=== PATIENT | female | born 1990 | race Caucasian/White ===

== ENCOUNTER 2019-02-13 14:27 | Emergency (ER) | payer OTHER ==
--- NOTE | 2019-02-13 15:47 | ER Document Report ---
ED Medical Screen (RME) - General Chief Complaint: Fever Stated Complaint: FEVER Time Seen by Provider: 02/13/19 15:39 Notes: Patient is otherwise healthy 28-year-old female presents to the emergency department for a weeklong cough, congestion. [place] Patient states today she developed a fever T- max 101, developed a sore throat, discharge from the right eye. States she is having an increase in respiratory distress which is why she presents to the emergency room. Patient denies any history of asthma or albuterol use. GENERAL: Alert, interacts well. No acute distress. LUNGS: Coarse lung sounds heard right lower lobe, No respiratory distress. I have greeted and performed a rapid initial assessment of this patient. A comprehensive ED assessment and evaluation of the patient, analysis of test results and completion of the medical decision making process will be conducted by additional ED providers. I have specifically instructed the patient or family members with the patient to immediately return to any nursing staff should anything change in the patient's condition or with their chief complaint. This medical record was dictated with voice recognizing software. There may be grammatical, syntax errors that are unintended. TRAVEL OUTSIDE OF THE [place] IN LAST 30 DAYS: No - Related Data Allergies/Adverse Reactions: diphenhydramine [From Benadryl] Allergy (Verified 02/13/19 14:31) Penicillins Allergy (Verified 02/13/19 14:31) Past Medical History - Social History Frequency of alcohol use: None Drug Abuse: None Renal/ Medical History: Denies: Hx Peritoneal Dialysis Physical Exam - Vital signs Vitals: Temp Pulse Resp BP Pulse Ox 99 F 110 H 18 126/73 H 97 02/13/19 14:35 02/13/19 14:35 02/13/19 14:35 02/13/19 14:35 02/13/19 14:35 Course - Vital Signs Vital signs: Temp Pulse Resp BP Pulse Ox 99 F 110 H 18 126/73 H 97 02/13/19 14:35 02/13/19 14:35 02/13/19 14:35 02/13/19 14:35 02/13/19 14:35
--- NOTE | 2019-02-13 16:18 | RADIOLOGY REPORT (SQ) ---
EXAM DESCRIPTION: CHEST 2 VIEWS COMPLETED DATE/TIME: 02/13/2019 4:03 pm REASON FOR STUDY: SOB COMPARISON: None. EXAM PARAMETERS: NUMBER OF VIEWS: two views TECHNIQUE: Digital Frontal and Lateral radiographic views of the chest acquired. RADIATION DOSE: NA LIMITATIONS: none FINDINGS: LUNGS AND PLEURA: No opacities, masses or pneumothorax. No pleural effusion. MEDIASTINUM AND HILAR STRUCTURES: No masses or contour abnormalities. HEART AND VASCULAR STRUCTURES: Heart normal size. No evidence for failure. BONES: Pectus excavatum deformity HARDWARE: None in the chest. OTHER: No other significant finding. IMPRESSION: NO ACUTE DISEASE. TECHNICAL DOCUMENTATION: JOB ID: [id number] [employer]- All Rights Reserved Reading location - IP/workstation name: [email or web address]
[2019-02-13 17:24] LABS: ABSOLUTE LYMPHOCYTES (AUTO) 1.1 10^3/uL (0.5-4.7); ABSOLUTE MONOCYTES (AUTO) 0.6 10^3/uL (0.1-1.4); ABSOLUTE NEUT (AUTO) 7.4 10^3/uL (1.7-8.2); BASOPHILS % (AUTO) 0.4 % (0-2); EOSINOPHILS % (AUTO) 0.4 % (0-6); HEMATOCRIT 36.3 % (36.0-47.0); HEMOGLOBIN 12.3 g/dL (12.0-15.5); LYMPHOCYTES % (AUTO) 12.2 % (13-45); MEAN CORPUSCULAR HEMOGLOBIN 29.4 pg (27.0-33.4); MEAN CORPUSCULAR HGB CONC 33.9 g/dL (32.0-36.0); MEAN CORPUSCULAR VOLUME 87 fl (80-97); MONOCYTES % (AUTO) 6.3 % (3-13); PLATELET COUNT 267 10^3/uL (150-450); RED BLOOD COUNT 4.18 10^6/uL (3.72-5.28); RED CELL DISTRIBUTION WIDTH 14.2 % (11.5-14.0); SEGMENTED NEUTROPHILS % (AUTO) 80.7 % (42-78); TOTAL CELLS COUNTED % (AUTO) 100 %; WHITE BLOOD COUNT 9.2 10^3/uL (4.0-10.5)
[2019-02-13 17:26] LABS: APPEARANCE,URINE SLIGHTLY-CLOUDY; BILIRUBIN,URINE NEGATIVE (NEGATIVE); COLOR,URINE YELLOW; GLUCOSE, URINE NEGATIVE (NEGATIVE); KETONES,URINE 20 mg/dL (NEGATIVE); LEUKOCYTE ESTERASE,URINE NEGATIVE (NEGATIVE); NITRITE,URINE NEGATIVE (NEGATIVE); PROTEIN,URINE NEGATIVE (NEGATIVE); URINE SPECIFIC GRAVITY 1.028; UROBILINOGEN,URINE NEGATIVE mg/dL (<2.0)
[2019-02-13 17:39] LABS: ALANINE AMINOTRANSFERASE 22 U/L (9-52); ALBUMIN 4.5 g/dL (3.5-5.0); ALKALINE PHOSPHATASE 74 U/L (38-126); ANION GAP 12 (5-19); ASPARTATE AMINO TRANSFERASE 16 U/L (14-36); BILIRUBIN,DIRECT 0.3 mg/dL (0.0-0.4); BILIRUBIN,TOTAL 0.4 mg/dL (0.2-1.3); BLOOD UREA NITROGEN 15 mg/dL (7-20); CALCIUM 9.7 mg/dL (8.4-10.2); CARBON DIOXIDE 25 mmol/L (22-30); CHLORIDE 102 mmol/L (98-107); GLUCOSE 81 mg/dL (75-110); POTASSIUM 4.3 mmol/L (3.6-5.0); SODIUM 139.4 mmol/L (137-145); TOTAL PROTEIN 7.6 g/dL (6.3-8.2)
--- NOTE | 2019-02-13 19:07 | ER Document Report ---
ED Fever - General Chief Complaint: Fever Stated Complaint: FEVER Time Seen by Provider: 02/13/19 15:39 Primary Care Provider: TRISTAN OWENS MD [Primary Care Provider] - Follow up as needed Notes: 28-year-old female presents to the emergency department for a week of cough, congestion. States [place] Patient states today she developed a fever T-max 101, developed a sore throat, discharge from the right eye. States she is having an increase in respiratory distress which is why she presents to the emergency room. Patient denies any history of asthma or albuterol use. TRAVEL OUTSIDE OF THE [place] IN LAST 30 DAYS: No - Related Data Allergies/Adverse Reactions: diphenhydramine [From Benadryl] Allergy (Verified 02/13/19 14:31) Penicillins Allergy (Verified 02/13/19 14:31) Past Medical History - Social History Smoking Status: Never Smoker Frequency of alcohol use: None Drug Abuse: None Family History: Reviewed & Not Pertinent Patient has suicidal ideation: No Patient has homicidal ideation: No Renal/ Medical History: Denies: Hx Peritoneal Dialysis Review of Systems - Review of Systems Constitutional: Chills, Fever EENT: Eye discharge, Nose congestion. denies: Blurred vision Cardiovascular: Chest pain, Dyspnea. denies: Palpitations, Syncope Respiratory: Cough, Hurts to breathe, Short of breath Gastrointestinal: denies: Abdominal pain, Nausea, Vomiting Genitourinary: denies: Dysuria, Hematuria Neurological/Psychological: denies: Headaches -: Yes All other systems reviewed and negative Physical Exam - Vital signs Vitals: Temp Pulse Resp BP Pulse Ox 99 F 110 H 18 126/73 H 97 02/13/19 14:35 02/13/19 14:35 02/13/19 14:35 02/13/19 14:35 02/13/19 14:35 - Notes Notes: GENERAL_APPEARANCE: well_nourished, alert, cooperative VITALS: reviewed, see vital signs table. HEAD: no_swelling\tenderness on the head. EYES: PERRL, EOMI, conjunctiva_conjunctivitis right no Duran cystitis NOSE: Clear_nasal_discharge. Turbinate MOUTH: (-)decreased moisture. THROAT: no_tonsilar_inflammation, no_airway_obstruction. no_lymphadenopathy NECK: supple, no_neck_tenderness, (-)thyromegaly. BACK: no_back_tenderness. CHEST_WALL: Fuhs right-sided_chest_tenderness. No crepitus or subcutaneous e mphysema LUNGS: no_wheezing, no_rales, no_rhonchi, (-)accessory muscle use, good air exchange bilateral. HEART: normal_rate, normal_rhythm, normal_S1, normal_S2, (-)S3, (-)S4, no_murmur, no_rub. ABDOMEN: normal_BS, soft, no_abd_tenderness, (-)guarding, (-)rebound, no_organomegaly, no_abd_masses. EXTREMITIES: good pulses in all_extremities, no_swelling\tenderness in the extremities, no_edema. SKIN: warm, dry, good_color, no_rash. MENTAL_STATUS: speech_clear, oriented_X_3, normal_affect, res ponds_appropriately to questions. NEURO: Neg Motor or Sensory Deficits on exam, CN 2-12 intact, DTR 2+ symmetric x 4, No cerbellar signs Course - Re-evaluation Re-evalutation: 02/13/19 19:07 28-year-old female presents with sharp right-sided chest pain. Patient has clinical history of pneumonia. Planes of fever chills productive cough. She is a lot of pleuritic pain on the right. [place] here we w ill get a CT of the chest to rule out PE. 02/13/19 20:49 CT of the chest showed no PEs. There are some groundglass opacities there which could be viral in nature versus early infiltrate. The patient is being treated with steroids dose of antibiotics here. She is done better after IV fluid she still mildly tachycardic I think this is due to the pain. We will place her on a steroid taper. Spoke with her at length. She has some mild conjunctivitis but I think this is all probably part of a viral pattern. ABX will be given as prophylaxis I think this is more viral pattern but due to the patient's discomfort pain a tachycardia will cover her with antibiotics - Vital Signs Vital signs: Temp Pulse Resp BP Pulse Ox 99 F 110 H 18 126/73 H 97 02/13/19 14:35 02/13/19 14:35 02/13/19 14:35 02/13/19 14:35 02/13/19 14:35 - Laboratory Result Diagrams: 02/13/19 16:47 02/13/19 16:47 Laboratory results interpreted by me: 02/13/19 02/13/19 15:58 16:47 RDW 14.2 H Seg Neutrophils % 80.7 H Lymphocytes % 12.2 L Urine Ketones 20 H Discharge - Discharge Clinical Impression: Pleurisy Conjunctivitis Qualifiers: Conjunctivitis type: acute Acute conjunctivitis type: viral Laterality: right Qualified Code(s): B30.9 - Viral conjunctivitis, unspecified Condition: Good Disposition: HOME, SELF-CARE Instructions: Pleurisy ([facility]), Conjunctivitis ([facility]) Prescriptions: Cefuroxime Axetil [Ceftin 500 mg Tablet] 1 tab PO BID #20 tablet Prednisone [Sterapred Ds] 1 pkg PO ASDIR PRN 12 Days tab.ds.pk PRN Reason: Referrals: TRISTAN OWENS MD [Primary Care Provider] - Follow up as needed
--- NOTE | 2019-02-13 20:42 | RADIOLOGY REPORT (SQ) ---
EXAM DESCRIPTION: RadLex: CT CHEST ANGIOGRAPHY WITHOUT THEN WITH IV CONTRAST CLINICAL HISTORY: 28 years Female; Pleuritic chest pain TECHNIQUE: CT angiogram of the chest using intravenous contrast.. MIP reconstructions were performed. All CT scans at this facility use dose modulation, iterative reconstruction, and/or weight based dosing when appropriate to reduce radiation dose to as low as reasonably achievable. COMPARISON: None. FINDINGS: Chest: No filling defects in the central pulmonary arteries. There is focal subsegmental atelectasis and minimal pleural fluid in the posterior medial right lower lobe. Lungs are otherwise clear. No pneumothorax. Mediastinum is normal, with no adenopathy or mass. IMPRESSION: 1. No CT evidence for pulmonary embolism. 2. Focal atelectasis in the posterior medial right lower lobe, with small amount of associated pleural fluid. The pleural fluid is atypical for simple atelectasis and raises concern for pleurisy (such as viral or other etiologies). Please correlate with clinical symptoms.
[2019-02-13] MEDS ORDERED: DEXAMETHASONE SOD PHOS INJ 10 MG/1 ML VIAL IV ONE (20:45)
[2019-02-13] MEDS ORDERED: CEFTRIAXONE 1 GM/D5W RTU 1 GM/50 ML RTUPB IV ONE (20:45)
[2019-02-13 22:07] VITALS: BP 116/82
== END 2019-02-13 22:12 | disposition home or self-care (01) ==
LOC: ER 14:27
DX: R09.1 Pleurisy (principal); B30.9 Viral conjunctivitis, unspecified; R07.1 Chest pain on breathing; R05 Cough; R50.9 Fever, unspecified; R06.02 Shortness of breath; R00.0 Tachycardia, unspecified
CPT/HCPCS: 99284; 96365; 36415; 87070; 87086; 87880; 85025; 81025; 80053; 81001; 71046; 71275; J0696; J1100

== ENCOUNTER 2019-02-15 14:15 | Inpatient (IN) | payer OTHER ==
[2019-02-15] MEDS ORDERED: ACETAMINOPHEN 325 MG TABLET PO ONE (14:50)
[2019-02-15] MEDS ORDERED: NORMAL SALINE 1000 ML 1,000 ML IV ONE ×2 (14:51)
[2019-02-15] MEDS ORDERED: CEFTRIAXONE 1 GM/D5W RTU 1 GM/50 ML RTUPB IV ONE (14:56)
[2019-02-15] MEDS ORDERED: AZITHROMYCIN INJ 500 MG VIAL IV ONE ×2 (14:57→17:56)
--- NOTE | 2019-02-15 15:01 | ER Document Report ---
ED Medical Screen (RME) - General Chief Complaint: Weakness Stated Complaint: NAUSEA,FEVER,BODY PAIN Time Seen by Provider: 02/15/19 14:46 Primary Care Provider: TRISTAN OWENS MD [Primary Care Provider] - Follow up as needed Notes: Patient is a 28-year-old female presents to the emergency department for worsening symptoms from a diagnosis of pneumonia and pleurisy 2 days ago. States she has been taking antibiotics and steroids as prescribed. States the last antibiotic she took was Motrin. Patient states she continues with fevers generalized chest pain on the right side of her chest, weakness, general malais e. Patient was noted to be Sirs positive with a temperature and an elevated heart rate. SIRS criteria orders placed. Patient status upgraded GENERAL: Appears unwell. LUNGS: Diminished bilateral bases. HEART: Tachycardic rate and rhythm. I have greeted and performed a rapid initial assessment of this patient. A comprehensive ED assessment and evaluation of the patient, analysis of test results and completion of the medical decision making process will be conducted by additional ED providers. I have specifically instructed the patient or family members with the patient to immediately return to any nursing staff should anything change in the patient's condition or with their chief complaint. This medical record was dictated with voice recognizing software. There may be grammatical, syntax errors that are unintended. TRAVEL OUTSIDE OF THE [place] IN LAST 30 DAYS: No - Related Data Allergies/Adverse Reactions: diphenhydramine [From Benadryl] Allergy (Verified 02/15/19 14:19) Penicillins Allergy (Verified 02/15/19 14:19) Past Medical History - Social History Frequency of alcohol use: None Drug Abuse: None Renal/ Medical History: Denies: Hx Peritoneal Dialysis Physical Exam - Vital signs Vitals: Temp Pulse Resp BP Pulse Ox 103.0 F H 121 H 20 121/71 97 02/15/19 14:31 02/15/19 14:31 02/15/19 14:31 02/15/19 14:31 02/15/19 14:31 Course - Vital Signs Vital signs: Temp Pulse Resp BP Pulse Ox 103.0 F H 121 H 20 121/71 97 02/15/19 14:31 02/15/19 14:31 02/15/19 14:31 02/15/19 14:31 02/15/19 14:31 Doctor's Discharge - Discharge Referrals: TRISTAN OWENS MD [Primary Care Provider] - Follow up as needed
--- NOTE | 2019-02-15 15:42 | RADIOLOGY REPORT (SQ) ---
EXAM DESCRIPTION: CHEST 2 VIEWS COMPLETED DATE/TIME: 02/15/2019 3:28 pm REASON FOR STUDY: SOB COMPARISON: 02/13/2019 EXAM PARAMETERS: NUMBER OF VIEWS: two views TECHNIQUE: Digital Frontal and Lateral radiographic views of the chest acquired. RADIATION DOSE: NA LIMITATIONS: none FINDINGS: LUNGS AND PLEURA: No opacities, masses or pneumothorax. No pleural effusion. MEDIASTINUM AND HILAR STRUCTURES: No masses or contour abnormalities. HEART AND VASCULAR STRUCTURES: Heart normal size. No evidence for failure. BONES: No acute findings. HARDWARE: None in the chest. OTHER: No other significant finding. IMPRESSION: No acute abnormality of the lungs. No focal airspace opacity. TECHNICAL DOCUMENTATION: JOB ID: [id number] [employer]- All Rights Reserved Reading location - IP/workstation name: [email or web address]
[2019-02-15 16:06] LABS: VENOUS BLOOD BASE EXCESS 1.8 mmol/L; VENOUS BLOOD HCO3 26.1 mmol/L (20-32); VENOUS BLOOD PCO2 39.8 mmHg (35-63); VENOUS BLOOD PH 7.43 (7.30-7.42)
[2019-02-15 16:07] LABS: HEMATOCRIT 34.2 % (36.0-47.0); HEMOGLOBIN 11.6 g/dL (12.0-15.5); MEAN CORPUSCULAR VOLUME 85 fl (80-97); PLATELET COUNT 253 10^3/uL (150-450); RED BLOOD COUNT 4.01 10^6/uL (3.72-5.28); RED CELL DISTRIBUTION WIDTH 14.3 % (11.5-14.0)
[2019-02-15 16:23] LABS: INTERNATIONAL RATION (INR) 0.94; PROTHROMBIN TIME 13.1 SEC (11.4-15.4)
[2019-02-15] MEDS ORDERED: KETOROLAC TROMETHAMINE INJ/PF 30 MG/1 ML SDV IV ONE (16:23)
[2019-02-15 16:26] LABS: ALANINE AMINOTRANSFERASE 18 U/L (9-52); ALBUMIN 4.3 g/dL (3.5-5.0); ALKALINE PHOSPHATASE 60 U/L (38-126); ANION GAP 11 (5-19); ASPARTATE AMINO TRANSFERASE 15 U/L (14-36); BILIRUBIN,DIRECT 0.2 mg/dL (0.0-0.4); BILIRUBIN,TOTAL 0.3 mg/dL (0.2-1.3); BLOOD UREA NITROGEN 16 mg/dL (7-20); CALCIUM 9.3 mg/dL (8.4-10.2); CARBON DIOXIDE 25 mmol/L (22-30); CHLORIDE 103 mmol/L (98-107); GLUCOSE 109 mg/dL (75-110); POTASSIUM 4.6 mmol/L (3.6-5.0); SODIUM 138.5 mmol/L (137-145); TOTAL PROTEIN 7.2 g/dL (6.3-8.2)
[2019-02-15 16:31] LABS: ABSOLUTE LYMPHOCYTES# (MANUAL) 0.4 10^3/uL (0.5-4.7); ABSOLUTE MONOCYTES # (MANUAL) 0.4 10^3/uL (0.1-1.4); BASOPHILS % (MANUAL) 0 % (0-2); EOSINOPHILS % (MANUAL) 0 % (0-6); LYMPHOCYTES % (MANUAL) 4 % (13-45); MONOCYTES % (MANUAL) 4 % (3-13); SEGMENTED NEUTROPHILS % (MAN) 92 % (42-78); TOTAL CELLS COUNTED 100
[2019-02-15 16:32] LABS: ANISOCYTOSIS SLIGHT; PLATELET COMMENT ADEQUATE
--- NOTE | 2019-02-15 16:39 | ER Document Report ---
ED General - General Chief Complaint: Weakness Stated Complaint: NAUSEA,FEVER,BODY PAIN Time Seen by Provider: 02/15/19 14:46 Primary Care Provider: TRISTAN OWENS MD [Primary Care Provider] - Follow up as needed TRAVEL OUTSIDE OF THE [place] IN LAST 30 DAYS: No - HPI Notes: Patient is a 28-year-old female that presents to the emergency department for chief complaint of pneumonia. Patient states that for the last few weeks she has had worsening cough, congestion and fevers. She states she was seen at an urgent care facility on 02/01 and started on a Z-Ronald for pneumonia. She states that did not improve her symptoms and 02/11 she went to [facility]. They told her that she had pleurisy and did not give her any new prescriptions. On 02/13 patient continued to feel sick with increasing shortness of breath and presented to this emergency room. She said was started on Ceftin and has been taking that for the past 2 days. She states that today she still was febrile despite taking Tylenol and ibuprofen. Her last dose of ibuprofen was around 9 AM. Patient states she has a sharp pain when she coughs on the right side of her chest that radiates from her sternum underneath her right breast and into her back. She states that pain is been constant for the last few weeks as well. She denies any syncopal episodes, palpitations, headache, nausea/vomiting and diarrhea. She did not receive an influenza vaccine this year Past Medical History: PCOS Past Surgical History: IUD placement Social History: Denies drugs alcohol and tobacco Family History: Reviewed and noncontributory for presenting illness Allergies: Reviewed, see documented allergy list. REVIEW OF SYSTEMS: CONSTITUTIONAL : fever chills diaphoresis No recent illness EENT: No vision changes congestion No sore throat CARDIOVASCULAR: chest pain No palpitations RESPIRATORY: shortness of breath cough difficulty breathing GASTROINTESTINAL: No abdominal pain No nausea No vomiting No diarrhea GENITOURINARY: No dysuria No hematuria No difficulty urinating MUSCULOSKELETAL: No back pain No leg pain No arm pain SKIN: No rashes No lesions LYMPHATIC: No swollen, enlarged glands. NEUROLOGICAL: No lightheadedness No headache No weakness No paresthesias PSYCHIATRIC: No anxiety No depression PHYSICAL EXAMINATION: Vital signs reviewed, nursing noted reviewed. GENERAL: Ill-appearing, well-nourished HEAD: Atraumatic, normocephalic. EYES: Eyes appear normal, extraocular movements intact, sclera anicteric, conjunctiva are normal. ENT: nares patent, oropharynx clear without exudates. Dry mucous membranes. NECK: Normal range of motion, supple without lymphadenopathy LUNGS: Breath sounds clear to auscultation bilaterally and equal. No wheezes rales or rhonchi. Coarse cough, tachypneic, no accessory muscle use HEART: Tachycardic rate and regular rhythm without murmurs ABDOMEN: Soft, nontender, normoactive bowel sounds. No rebound, guarding, or rigidity. No masses appreciated. EXTREMITIES: Nontender, good range of motion, no pitting or edema. NEUROLOGICAL: No focal neurological deficits. Moves all extremities spontaneously Motor and sensory grossly intact on exam. PSYCH: Normal mood, normal affect. SKIN: Warm, Dry, normal turgor, no rashes or lesions noted on exposed skin - Related Data Allergies/Adverse Reactions: diphenhydramine [From Benadryl] Allergy (Verified 02/15/19 14:19) Penicillins Allergy (Verified 02/15/19 14:19) Past Medical History - Social History Smoking Status: Never Smoker Frequency of alcohol use: None Drug Abuse: None Family History: Reviewed & Not Pertinent Patient has suicidal ideation: No Patient has homicidal ideation: No Neurological Medical History: Reports: Hx Seizures - febrile seizures Renal/ Medical History: Denies: Hx Peritoneal Dialysis Physical Exam - Vital signs Vitals: Temp Pulse Resp BP Pulse Ox 103.0 F H 121 H 20 121/71 97 02/15/19 14:31 02/15/19 14:31 02/15/19 14:31 02/15/19 14:31 02/15/19 14:31 Course - Re-evaluation Re-evalutation: 02/15/19 16:38 Vitals reviewed. Nursing notes reviewed. Patient presented to the emergency room febrile, tachycardic and tachypneic. She has been compliant with home antibiotics. Patient is currently oxygenating on room air but is ill-appearing and tachypneic. She received Tylenol, Rocephin, azithromycin and IV fluids in triage. Her lab work shows a worsening leukocytosis with bandemia. Patient has no new infiltrate on chest x-ray however the comparison x-ray from 2 days ago was also clear and her infiltrate was found on CT scan. Patient has continued to worsen despite outpatient management and is meeting sepsis criteria. Plan to admit to the hospital for further IV antibiotics and monitoring. Care discussed with Dr. Lowe who accepts admission. Laboratory 02/15/19 02/15/19 02/15/19 06:13 15:45 15:45 WBC 11.0 H RBC 4.01 Hgb 11.6 L Hct 34.2 L MCV 85 MCH 29.0 MCHC 34.0 RDW 14.3 H Plt Count 253 Total Counted 100 Seg Neutrophils % Not Reportable Seg Neuts % (Manual) 92 H Lymphocytes % Not Reportable Lymphocytes % (Manual) 4 L Monocytes % Not Reportable Monocytes % (Manual) 4 Eosinophils % Not Reportable Eosinophils % (Manual) 0 Basophils % Not Reportable Basophils % (Manual) 0 Absolute Neutrophils Not Reportable Abs Neuts (Manual) 10.1 H Absolute Lymphocytes Not Reportable Abs Lymphs (Manual) 0.4 L Absolute Monocytes Not Reportable Abs Monocytes (Manual) 0.4 Absolute Eosinophils Not Reportable Absolute Eos (Manual) 0.0 Absolute Basophils Not Reportable Abs Basophils (Manual) 0.0 Platelet Comment ADEQUATE Anisocytosis SLIGHT PT 13.1 INR 0.94 VBG pH VBG pCO2 VBG HCO3 VBG Base Excess Sodium 138.5 Potassium 4.6 Chloride 103 Carbon Dioxide 25 Anion Gap 11 BUN 16 Creatinine 0.62 Est GFR ( Amer) > 60 Est GFR (Non-Af Amer) > 60 Glucose 109 Lactic Acid Calcium 9.3 Total Bilirubin 0.3 Direct Bilirubin 0.2 Neonat Total Bilirubin Not Reportable Neonat Direct Bilirubin Not Reportable Neonat Indirect Bili Not Reportable AST 15 ALT 18 Alkaline Phosphatase 60 Total Protein 7.2 Albumin 4.3 02/15/19 02/15/19 15:45 15:45 WBC RBC Hgb Hct MCV MCH MCHC RDW Plt Count Total Counted Seg Neutrophils % Seg Neuts % (Manual) Lymphocytes % Lymphocytes % (Manual) Monocytes % Monocytes % (Manual) Eosinophils % Eosinophils % (Manual) Basophils % Basophils % (Manual) Absolute Neutrophils Abs Neuts (Manual) Absolute Lymphocytes Abs Lymphs (Manual) Absolute Monocytes Abs Monocytes (Manual) Absolute Eosinophils Absolute Eos (Manual) Absolute Basophils Abs Basophils (Manual) Platelet Comment Anisocytosis PT INR VBG pH 7.43 H VBG pCO2 39.8 VBG HCO3 26.1 VBG Base Excess 1.8 Sodium Potassium Chloride Carbon Dioxide Anion Gap BUN Creatinine Est GFR ( Amer) Est GFR (Non-Af Amer) Glucose Lactic Acid 0.9 Calcium Total Bilirubin Direct Bilirubin Neonat Total Bilirubin Neonat Direct Bilirubin Neonat Indirect Bili AST ALT Alkaline Phosphatase Total Protein Albumin Chest X-Ray 02/15/19 14:54 IMPRESSION: No acute abnormality of the lungs. No focal airspace opacity. - Vital Signs Vital signs: Temp Pulse Resp BP Pulse Ox 103.0 F H 121 H 20 121/71 97 02/15/19 14:31 02/15/19 14:31 02/15/19 14:31 02/15/19 14:31 02/15/19 14:31 - Laboratory Result Diagrams: 02/15/19 15:45 02/15/19 06:13 Laboratory results interpreted by me: 02/15/19 02/15/19 15:45 15:45 WBC 11.0 H Hgb 11.6 L Hct 34.2 L RDW 14.3 H Seg Neuts % (Manual) 92 H Lymphocytes % (Manual) 4 L Abs Neuts (Manual) 10.1 H Abs Lymphs (Manual) 0.4 L VBG pH 7.43 H - EKG Interpretation by Me Additional EKG results interpreted by me: 02/15/19 16:36 Interpreted by myself 1629: Normal sinus rhythm, rate 98, normal axis, no ectopy, no STEMI Discharge - Discharge Clinical Impression: Sepsis Qualifiers: Sepsis type: sepsis due to unspecified organism Qualified Code(s): A41.9 - Sepsis, unspecified organism Pneumonia Qualifiers: Pneumonia type: due to unspecified organism Laterality: right Lung location: unspecified part of lung Qualified Code(s): J18.9 - Pneumonia, unspecified organism Condition: Stable Disposition: ADMITTED INPATIENT Admitting Provider: Mynor (Hospitalist) Unit Admitted: Medical Floor Referrals: TRISTAN OWENS MD [Primary Care Provider] - Follow up as needed
[2019-02-15] MEDS ORDERED: ACETAMINOPHEN 650 MG SUPP.RECT PR PRN (17:27)
[2019-02-15] MEDS ORDERED: ONDANSETRON HCL INJ/PF 4 MG/2 ML SDV IV PRN (17:27)
--- NOTE | 2019-02-15 18:18 | PDOC H&P ---
History of Present Illness Admission Date/PCP: TRISTAN OWENS MD Patient complains of: fever with failed out pt treatment. History of Present Illness: NATALIE VINSON is a 28 year old female with a history of fever associated with cough nausea for the last 3 weeks she was treated with outpatient antibiotic therapy Z-Ronald and Ceftin without any success, she had 4 x-rays and one CT scan as an outpatient latest CT scan on Friday shows right sided small pleural effusion. PE is ruled out no obvious pneumonia she came in with a temperature of 103 today associated with nausea headaches cough with greenish sputum. Work- up was done in the emergency room shows chest x-ray was normal WBC count is 11,100. Fever of 103 medical consult was called for admission in the emergency room patient was given IV Rocephin and IV azithromycin. I went to examine the patient and discussed the results including labs and x-ray reports and plan of care she agreed to stay in the hospital for IV antibiotic therapy. Past Medical History Cardiac Medical History: Reports: None Pulmonary Medical History: Reports: None EENT Medical History: Reports: None Neurological Medical History: Reports: None, Seizures - febrile seizures Endocrine Medical History: Reports: None Renal/ Medical History: Reports: None, Other - Patient has a history of polycystic ovarian syndrome. Malignancy Medical History: Reports: None GI Medical History: Reports: None Psychiatric Medical History: Reports: None Hematology: Reports: None Past Surgical History Past Surgical History: Reports: None Social History Information Source: Patient Lives with: Family Smoking Status: Never Smoker Frequency of Alcohol Use: None Hx Recreational Drug Use: No Hx Prescription Drug Abuse: No - Advance Directive Resuscitation Status: Full Code Family History Family History: Reviewed & Not Pertinent Parental Family History Reviewed: Yes - Father with diabetes mellitus hypertension mother with stroke. Children Family History Reviewed: Yes Sibling(s) Family History Reviewed.: Yes Medication/Allergy Home Medications: Cefuroxime Axetil [Ceftin 500 mg Tablet] 1 tab PO BID #20 tablet 02/13/19 Prednisone [Sterapred Ds] 1 pkg PO ASDIR PRN 12 Days tab.ds.pk 02/13/19 Allergies/Adverse Reactions: diphenhydramine [From Benadryl] Allergy (Verified 02/15/19 14:19) Penicillins Allergy (Verified 02/15/19 14:19) Review of Systems Constitutional: PRESENT: chills, fatigue, fever(s), headache(s), weakness Eyes: ABSENT: visual disturbances Ears: ABSENT: hearing changes Nose, Mouth, and Throat: PRESENT: sore throat Respiratory: PRESENT: cough, sputum Gastrointestinal: ABSENT: abdominal pain, constipation, diarrhea, hematemesis, hematochezia, nausea, vomiting Genitourinary: ABSENT: dysuria, hematuria Musculoskeletal: ABSENT: joint swelling Neurological: ABSENT: abnormal gait, abnormal speech, confusion, dizziness, focal weakness, syncope Psychiatric: ABSENT: anxiety, depression, homidical ideation, suicidal ideation Endocrine: ABSENT: cold intolerance, heat intolerance, polydipsia, polyuria Physical Exam Vital Signs: Temp Pulse Resp BP Pulse Ox 99.7 F 121 H 20 121/71 97 02/15/19 16:20 02/15/19 14:31 02/15/19 14:31 02/15/19 14:31 02/15/19 14:31 Intake & Output 02/14/19 02/15/19 02/16/19 06:59 06:59 06:59 Weight 61.8 kg General appearance: PRESENT: mild distress, well-developed Head exam: PRESENT: atraumatic Eye exam: PRESENT: PERRLA, other - Right eye is with red conjunctiva and watery drainage. Ear exam: PRESENT: normal external ear exam Mouth exam: PRESENT: moist, tongue midline Teeth exam: PRESENT: poor dentation Neck exam: ABSENT: carotid bruit, JVD, lymphadenopathy, thyromegaly Respiratory exam: PRESENT: clear to auscultation tammie. ABSENT: rales, rhonchi, wheezes Cardiovascular exam: PRESENT: RRR. ABSENT: diastolic murmur, rubs, systolic murmur GI/Abdominal exam: PRESENT: normal bowel sounds, soft. ABSENT: distended, guarding, mass, organolmegaly, rebound, tenderness Rectal exam: PRESENT: deferred Extremities exam: PRESENT: full ROM. ABSENT: calf tenderness, clubbing, pedal edema Neurological exam: PRESENT: alert, awake, oriented to person, oriented to place, oriented to time, oriented to situation, CN II-XII grossly intact. ABSENT: motor sensory deficit Psychiatric exam: PRESENT: appropriate affect, normal mood. ABSENT: homicidal ideation, suicidal ideation Results Laboratory Results: 02/15/19 15:45 02/15/19 06:13 06/02/15/19 02/15/19 06:13 15:45 15:45 WBC 11.0 H RBC 4.01 Hgb 11.6 L Hct 34.2 L MCV 85 MCH 29.0 MCHC 34.0 RDW 14.3 H Plt Count 253 Seg Neutrophils % Not Reportable Lymphocytes % Not Reportable Monocytes % Not Reportable Eosinophils % Not Reportable Basophils % Not Reportable Absolute Neutrophils Not Reportable Absolute Lymphocytes Not Reportable Absolute Monocytes Not Reportable Absolute Eosinophils Not Reportable Absolute Basophils Not Reportable VBG pH VBG pCO2 VBG HCO3 VBG Base Excess Sodium 138.5 Potassium 4.6 Chloride 103 Carbon Dioxide 25 Anion Gap 11 BUN 16 Creatinine 0.62 Est GFR ( Amer) > 60 Est GFR (Non-Af Amer) > 60 Glucose 109 Lactic Acid 0.9 Calcium 9.3 Total Bilirubin 0.3 AST 15 ALT 18 Alkaline Phosphatase 60 Total Protein 7.2 Albumin 4.3 02/15/19 15:45 WBC RBC Hgb Hct MCV MCH MCHC RDW Plt Count Seg Neutrophils % Lymphocytes % Monocytes % Eosinophils % Basophils % Absolute Neutrophils Absolute Lymphocytes Absolute Monocytes Absolute Eosinophils Absolute Basophils VBG pH 7.43 H VBG pCO2 39.8 VBG HCO3 26.1 VBG Base Excess 1.8 Sodium Potassium Chloride Carbon Dioxide Anion Gap BUN Creatinine Est GFR ( Amer) Est GFR (Non-Af Amer) Glucose Lactic Acid Calcium Total Bilirubin AST ALT Alkaline Phosphatase Total Protein Albumin Impressions: Chest X-Ray 02/15/19 14:54 IMPRESSION: No acute abnormality of the lungs. No focal airspace opacity. Assessment and Plan - Diagnosis (1) Pneumonia Qualifiers: Pneumonia type: due to unspecified organism Laterality: right Lung location: unspecified part of lung Qualified Code(s): J18.9 - Pneumonia, unspecified organism Is this a current diagnosis for this admission?: Yes Plan: 02/15/2019-patient is going to be admitted as inpatient for failed outpatient pneumonia she is going to be admitted as inpatient for failed outpatient antibiotic therapy patient is going to be started on IV levofloxacillin and to be placed in telemetry. To put the patient on telemetry monitoring because of tachycardia. Sputum cultures blood cultures are requested. GI prophylaxis DVT prophylaxis initiated. Placed on oxygen 2 L nasal cannula. Started on levo albuterol nebulizations every 4 as needed. (2) Sepsis Qualifiers: Sepsis type: sepsis due to unspecified organism Qualified Code(s): A41.9 - Sepsis, unspecified organism Is this a current diagnosis for this admission?: Yes Plan: 02/15/2019-patient admitted with fever tachycardia shortness of breath and CAT scan shows possible right pleural effusion with atelectasis adjacent atelecta sis. WBC count is 11,100. Heart rate is around 121 at the time of my examination. Sputum cultures blood cultures are requested. (3) Conjunctivitis Qualifiers: Conjunctivitis type: acute Acute conjunctivitis type: viral Laterality: right Qualified Code(s): B30.9 - Viral conjunctivitis, unspecified Is this a current diagnosis for this admission?: Yes Plan: 02/15/2019-patient came in with right eye conjunctivitis. Started on a Cipro eyedrops. Advised about contact precautions. - Time Time Spent with patient: 25-34 minutes Medications reviewed and adjusted accordingly: Yes Anticipated discharge: Home
[2019-02-15 20:43] LABS: APPEARANCE,URINE SLIGHTLY-CLOUDY; BILIRUBIN,URINE NEGATIVE (NEGATIVE); COLOR,URINE YELLOW; GLUCOSE, URINE NEGATIVE (NEGATIVE); KETONES,URINE NEGATIVE (NEGATIVE); LEUKOCYTE ESTERASE,URINE TRACE (NEGATIVE); NITRITE,URINE NEGATIVE (NEGATIVE); PROTEIN,URINE NEGATIVE (NEGATIVE); URINE SPECIFIC GRAVITY 1.015; UROBILINOGEN,URINE NEGATIVE mg/dL (<2.0)
[2019-02-15] MEDS: NORMAL SALINE 1000 ML 1,000 ML IV PRN (20:49)
[2019-02-15] MEDS: LEVALBUTEROL HCL NEB 0.63 MG/3 ML AMPUL NEB SCH (21:24)
[2019-02-15] MEDS: CIPROFLOXACIN-HC OTIC SUSP 10 ML AD SCH (22:10)
[2019-02-15 22:14] LABS: A TYPE INFLUENZA AG NEGATIVE (NEGATIVE); B INFLUENZA AG NEGATIVE (NEGATIVE)
--- NOTE | 2019-02-15 23:02 | EKG REPORT ---
SEVERITY:- NORMAL ECG - SINUS RHYTHM : Confirmed by: Corie Burgess 15-Feb-2019 23:01:23
[2019-02-15] MEDS: OXYCODONE-ACETAMINOPHEN 5-325 MG TABLET PO PRN (23:21)
[2019-02-15] MEDS: GUAIFENESIN/D-METHORPHAN (200-20 MG) SYRUP 10 ML PO PRN (23:26)
[2019-02-16] MEDS: LEVALBUTEROL HCL NEB 0.63 MG/3 ML AMPUL NEB SCH ×4 (02:06→20:35)
[2019-02-16] MEDS: OXYCODONE-ACETAMINOPHEN 5-325 MG TABLET PO PRN ×4 (05:02→18:41)
[2019-02-16] MEDS: PANTOPRAZOLE SODIUM 40 MG TABLET.DR PO SCH ×2 (05:02→17:20)
[2019-02-16] MEDS: NORMAL SALINE 1000 ML 1,000 ML IV PRN ×3 (05:03→20:51)
[2019-02-16] MEDS: GUAIFENESIN/D-METHORPHAN (200-20 MG) SYRUP 10 ML PO PRN ×2 (05:09→13:17)
[2019-02-16 06:32] LABS: HEMATOCRIT 30.7 % (36.0-47.0); HEMOGLOBIN 10.3 g/dL (12.0-15.5); MEAN CORPUSCULAR HEMOGLOBIN 28.9 pg (27.0-33.4); MEAN CORPUSCULAR HGB CONC 33.7 g/dL (32.0-36.0); MEAN CORPUSCULAR VOLUME 86 fl (80-97); PLATELET COUNT 197 10^3/uL (150-450); RED BLOOD COUNT 3.57 10^6/uL (3.72-5.28); RED CELL DISTRIBUTION WIDTH 14.2 % (11.5-14.0); WHITE BLOOD COUNT 7.2 10^3/uL (4.0-10.5)
[2019-02-16 06:48] LABS: ALANINE AMINOTRANSFERASE 12 U/L (9-52); ALBUMIN 3.4 g/dL (3.5-5.0); ALKALINE PHOSPHATASE 47 U/L (38-126); AMYLASE 73 U/L (30-110); ANION GAP 9 (5-19); ASPARTATE AMINO TRANSFERASE 11 U/L (14-36); BILIRUBIN,DIRECT 0.2 mg/dL (0.0-0.4); BILIRUBIN,TOTAL 0.2 mg/dL (0.2-1.3); BLOOD UREA NITROGEN 10 mg/dL (7-20); CARBON DIOXIDE 23 mmol/L (22-30); CHLORIDE 107 mmol/L (98-107); CHOLESTEROL 128.02 mg/dL (0-200); CREATINE KINASE 22 U/L (30-135); GLUCOSE 87 mg/dL (75-110); POTASSIUM 3.9 mmol/L (3.6-5.0); SODIUM 139.2 mmol/L (137-145); TOTAL PROTEIN 6.1 g/dL (6.3-8.2); TRIGLYCERIDES 66 mg/dL (<150)
[2019-02-16 06:59] LABS: DIRECT LDL 68 mg/dL (<100)
[2019-02-16] MEDS: CIPROFLOXACIN-HC OTIC SUSP 10 ML AD SCH ×2 (09:09→17:20)
[2019-02-16] MEDS: ENOXAPARIN SODIUM INJ 40 MG/0.4 ML DISP.SYRIN SUBCUT SCH (09:10)
--- NOTE | 2019-02-16 11:50 | PDOC PROGRESS REPORT ---
Subjective Progress Note for:: 02/16/19 Subjective:: 28 year old female with a history of fever associated with cough nausea for the last 3 weeks she was treated with outpatient antibiotic therapy Z-Ronald and Ceftin without any success, she had 4 x-rays and one CT scan as an outpatient latest CT scan on Friday shows right sided small pleural effusion. PE is ruled out no obvious pneumonia she came in with a temperature of 103 today associated with nausea headaches cough with greenish sputum. Work-up was done in the emergency room shows chest x-ray was normal WBC count is 11,100. Fever of 103 medical consult was called for admission in the emergency room patient was given IV Rocephin and IV azithromycin. I went to examine the patient and discussed the results including labs and x-ray reports and plan of care she agreed to stay in the hospital for IV antibiotic therapy. 02/[id number]-foww-old female admitted for pneumonia with failed outpatient treatment she has a T-max of 100.8 this morning presently on IV levofloxacillin. Patient is allergic to penicillins. I will add IV clindamycin to the medicati on. Reason For Visit: SEPSIS,PNEUMONIA Physical Exam Vital Signs: Temp Pulse Resp BP Pulse Ox 98.2 F 110 H 20 106/63 98 02/15/19 23:15 02/16/19 08:25 02/16/19 08:25 02/15/19 23:15 02/16/19 08:25 Intake & Output 02/15/19 02/16/19 02/17/19 06:59 06:59 06:59 Intake Total 3000 Balance 3000 Weight 64.3 kg General appearance: PRESENT: no acute distress Head exam: PRESENT: atraumatic Eye exam: PRESENT: PERRLA Mouth exam: PRESENT: moist, tongue midline Teeth exam: PRESENT: poor dentation Neck exam: ABSENT: carotid bruit, JVD, lymphadenopathy, thyromegaly Respiratory exam: PRESENT: clear to auscultation tammie. ABSENT: rales, rhonchi, wheezes Cardiovascular exam: PRESENT: RRR. ABSENT: diastolic murmur, rubs, systolic murmur GI/Abdominal exam: PRESENT: normal bowel sounds, soft. ABSENT: distended, guarding, mass, organolmegaly, rebound, tenderness Rectal exam: PRESENT: deferred Extremities exam: PRESENT: full ROM. ABSENT: calf tenderness, clubbing, pedal edema Neurological exam: PRESENT: alert, awake, oriented to person, oriented to place, oriented to time, oriented to situation, CN II-XII grossly intact. ABSENT: motor sensory deficit Psychiatric exam: PRESENT: appropriate affect, normal mood. ABSENT: homicidal ideation, suicidal ideation Results Laboratory Results: 02/16/19 06:00 02/16/19 06:00 02/15/19 02/15/19 02/15/19 06:13 15:45 15:45 WBC 11.0 H RBC 4.01 Hgb 11.6 L Hct 34.2 L MCV 85 MCH 29.0 MCHC 34.0 RDW 14.3 H Plt Count 253 Seg Neutrophils % Not Reportable Lymphocytes % Not Reportable Monocytes % Not Reportable Eosinophils % Not Reportable Basophils % Not Reportable Absolute Neutrophils Not Reportable Absolute Lymphocytes Not Reportable Absolute Monocytes Not Reportable Absolute Eosinophils Not Reportable Absolute Basophils Not Reportable VBG pH VBG pCO2 VBG HCO3 VBG Base Excess Sodium 138.5 Potassium 4.6 Chloride 103 Carbon Dioxide 25 Anion Gap 11 BUN 16 Creatinine 0.62 Est GFR ( Amer) > 60 Est GFR (Non-Af Amer) > 60 Glucose 109 Lactic Acid 0.9 Calcium 9.3 Magnesium Total Bilirubin 0.3 AST 15 ALT 18 Alkaline Phosphatase 60 Total Protein 7.2 Albumin 4.3 Triglycerides Cholesterol LDL Cholesterol Direct VLDL Cholesterol HDL Cholesterol Amylase TSH Urine Color Urine Appearance Urine pH Ur Specific [place] Urine Protein Urine Glucose (UA) Urine Ketones Urine Blood Urine Nitrite Ur Leukocyte Esterase Urine WBC (Auto) Urine RBC (Auto) 02/15/19 02/15/19 02/16/19 15:45 16:44 06:00 WBC RBC Hgb Hct MCV MCH MCHC RDW Plt Count Seg Neutrophils % Lymphocytes % Monocytes % Eosinophils % Basophils % Absolute Neutrophils Absolute Lymphocytes Absolute Monocytes Absolute Eosinophils Absolute Basophils VBG pH 7.43 H VBG pCO2 39.8 VBG HCO3 26.1 VBG Base Excess 1.8 Sodium 139.2 Potassium 3.9 Chloride 107 Carbon Dioxide 23 Anion Gap 9 BUN 10 Creatinine 0.47 L Est GFR ( Amer) > 60 Est GFR (Non-Af Amer) > 60 Glucose 87 Lactic Acid Calcium 8.0 L Magnesium 1.7 Total Bilirubin 0.2 AST 11 L ALT 12 Alkaline Phosphatase 47 Total Protein 6.1 L Albumin 3.4 L Triglycerides 66 Cholesterol 128.02 LDL Cholesterol Direct 68 VLDL Cholesterol 13.0 HDL Cholesterol 45 Amylase 73 TSH Urine Color YELLOW Urine Appearance SLIGHTLY-CLOUDY Urine pH 5.0 Ur Specific [place] 1.015 Urine Protein NEGATIVE Urine Glucose (UA) NEGATIVE Urine Ketones NEGATIVE Urine Blood SMALL H Urine Nitrite NEGATIVE Ur Leukocyte Esterase TRACE H Urine WBC (Auto) 3 Urine RBC (Auto) 2 02/16/19 02/16/19 06:00 06:00 WBC 7.2 RBC 3.57 L Hgb 10.3 L Hct 30.7 L MCV 86 MCH 28.9 MCHC 33.7 RDW 14.2 H Plt Count 197 Seg Neutrophils % Lymphocytes % Monocytes % Eosinophils % Basophils % Absolute Neutrophils Absolute Lymphocytes Absolute Monocytes Absolute Eosinophils Absolute Basophils VBG pH VBG pCO2 VBG HCO3 VBG Base Excess Sodium Potassium Chloride Carbon Dioxide Anion Gap BUN Creatinine Est GFR ( Amer) Est GFR (Non-Af Amer) Glucose Lactic Acid Calcium Magnesium Total Bilirubin AST ALT Alkaline Phosphatase Total Protein Albumin Triglycerides Cholesterol LDL Cholesterol Direct VLDL Cholesterol HDL Cholesterol Amylase TSH 1.27 Urine Color Urine Appearance Urine pH Ur Specific [place] Urine Protein Urine Glucose (UA) Urine Ketones Urine Blood Urine Nitrite Ur Leukocyte Esterase Urine WBC (Auto) Urine RBC (Auto) 02/15/19 02/15/19 02/15/19 17:45 17:45 23:28 Creatine Kinase 24 L 27 L CK-MB (CK-2) < 0.22 02/15/19 02/16/19 02/16/19 23:28 06:00 06:00 Creatine Kinase 22 L CK-MB (CK-2) < 0.22 < 0.22 Impressions: Chest X-Ray 02/15/19 14:54 IMPRESSION: No acute abnormality of the lungs. No focal airspace opacity. Assessment and Plan - Diagnosis (1) Pneumonia Qualifiers: Pneumonia type: due to unspecified organism Laterality: right Lung location: unspecified part of lung Qualified Code(s): J18.9 - Pneumonia, unspecified organism Is this a current diagnosis for this admission?: Yes Plan: 02/15/2019-patient is going to be admitted as inpatient for failed outpatient pneumonia she is going to be admitted as inpatient for failed outpatient antibiotic therapy patient is going to be started on IV levofloxacillin and to be placed in telemetry. To put the patient on telemetry monitoring because of tachycardia. Sputum cultures blood cultures are requested. GI prophylaxis DVT prophylaxis initiated. Placed on oxygen 2 L nasal cannula. Started on levo albuterol nebulizations every 4 as needed. 02/16/2019-this 28-year-old female admitted for failed outpatient treatment for pneumonia presently-IV levo floxacillin T-max is 100.6. Sputum cultures blood tests are pending. No acute events. Plan is to continue the present management at this point. (2) Sepsis Qualifiers: Sepsis type: sepsis due to unspecified organism Qualified Code(s): A41.9 - Sepsis, unspecified organism Is this a current diagnosis for this admission?: Yes Plan: 02/15/2019-patient admitted with fever tachycardia shortness of breath and CAT scan shows possible right pleural effusion with atelectasis adjacent atelectasis. WBC count is 11,100. Heart rate is around 121 at the time of my examination. Sputum cultures blood cultures are requested. 02/16/2019-patient came in with fever of 103, tachycardia, shortness of breath and CT scan shows right pleural effusion with adjacent atelectasis. WBC count yesterday was 11,000. Improved to 7200 today. Plan is to continue IV levo floxacillin and added IV clindamycin from today. Sputum culture showing gram- positive cocci in chains and blood cultures are pending. (3) Conjunctivitis Qualifiers: Conjunctivitis type: acute Acute conjunctivitis type: viral Laterality: right Qualified Code(s): B30.9 - Viral conjunctivitis, unspecified Is this a current diagnosis for this admission?: Yes Plan: 02/15/2019-patient came in with right eye conjunctivitis. Started on a Cipro eyedrops. Advised about contact precautions. 02/16/2019-patient is getting Cipro eyedrops for right-sided conjunctivitis looks much improved compared to yesterday. - Time Time Spent with patient: 25-34 minutes Medications reviewed and adjusted accordingly: Yes Anticipated discharge: Home
--- NOTE | 2019-02-16 14:03 | RADIOLOGY REPORT (SQ) ---
EXAM DESCRIPTION: CHEST 2 VIEWS COMPLETED DATE/TIME: 02/16/2019 1:44 pm REASON FOR STUDY: pneumonia COMPARISON: 02/15/2019 TECHNIQUE: Frontal and lateral radiographic views of the chest acquired. NUMBER OF VIEWS: Two view. LIMITATIONS: None. FINDINGS: LUNGS AND PLEURA: No pneumothorax. Minimal left basilar subsegmental atelectasis. No den se consolidation or pleural effusion. MEDIASTINUM AND HILAR STRUCTURES: Stable. HEART AND VASCULAR STRUCTURES: Stable. BONES: No acute findings. HARDWARE: None in the chest. OTHER: No other significant finding. IMPRESSION: Minimal left basilar subsegmental atelectasis. No dense consolidation or pleural effus ion. TECHNICAL DOCUMENTATION: JOB ID: [id number] [id number] 2010 [employer]- All Rights Reserved Reading location - IP/workstation name: [email or web address]
[2019-02-16] MEDS: ACETAMINOPHEN 325 MG TABLET PO PRN ×2 (15:47→20:17)
[2019-02-16] MEDS ORDERED: VANCOMYCIN HCL 1,000 MG in DEXTROSE 5%-WATER 250 ML IV SCH (16:00)
[2019-02-16] MEDS: LEVOFLOXACIN 500 MG/D5W RTU 500 MG/100 ML RTUPB IV SCH (17:20)
[2019-02-16] MEDS ORDERED: DIPHENHYDRAMINE HCL 50 MG/ML VIAL ONE (17:48)
[2019-02-16] MEDS ORDERED: DIPHENHYDRAMINE HCL 50 MG/ML VIAL IV PRN (17:50)
[2019-02-16] MEDS ORDERED: HYDROXYZINE HCL INJ 50 MG/1 ML VIAL IM PRN (17:56)
[2019-02-16] MEDS ORDERED: VANCOMYCIN HCL INJ 1000 MG VIAL IV SCH (18:00)
[2019-02-16] MEDS: CLINDAMYCIN 600 MG/D5W RTU 600 MG/50 ML RTUPB IV SCH (21:50)
[2019-02-16] MEDS: BENZOCAINE/MENTHOL SORE THROAT LOZENGE BUCCAL PRN (21:53)
[2019-02-17] MEDS: NORMAL SALINE 1000 ML 1,000 ML IV PRN (02:39)
[2019-02-17] MEDS: LEVALBUTEROL HCL NEB 0.63 MG/3 ML AMPUL NEB SCH ×4 (02:41→21:36)
[2019-02-17] MEDS: PANTOPRAZOLE SODIUM 40 MG TABLET.DR PO SCH ×2 (05:27→17:19)
[2019-02-17] MEDS: CLINDAMYCIN 600 MG/D5W RTU 600 MG/50 ML RTUPB IV SCH ×3 (05:27→22:58)
[2019-02-17] MEDS: OXYCODONE-ACETAMINOPHEN 5-325 MG TABLET PO PRN ×3 (05:29→16:34)
[2019-02-17 08:09] LABS: ABSOLUTE LYMPHOCYTES (AUTO) 0.9 10^3/uL (0.5-4.7); ABSOLUTE MONOCYTES (AUTO) 0.5 10^3/uL (0.1-1.4); ABSOLUTE NEUT (AUTO) 4.1 10^3/uL (1.7-8.2); BASOPHILS % (AUTO) 0.4 % (0-2); EOSINOPHILS % (AUTO) 0.2 % (0-6); HEMATOCRIT 32.1 % (36.0-47.0); LYMPHOCYTES % (AUTO) 15.9 % (13-45); MEAN CORPUSCULAR HEMOGLOBIN 28.9 pg (27.0-33.4); MEAN CORPUSCULAR HGB CONC 34.1 g/dL (32.0-36.0); MEAN CORPUSCULAR VOLUME 85 fl (80-97); MONOCYTES % (AUTO) 9.9 % (3-13); PLATELET COUNT 193 10^3/uL (150-450); RED BLOOD COUNT 3.79 10^6/uL (3.72-5.28); RED CELL DISTRIBUTION WIDTH 13.8 % (11.5-14.0); SEGMENTED NEUTROPHILS % (AUTO) 73.6 % (42-78); TOTAL CELLS COUNTED % (AUTO) 100 %; WHITE BLOOD COUNT 5.5 10^3/uL (4.0-10.5)
[2019-02-17 08:44] LABS: ALANINE AMINOTRANSFERASE 17 U/L (9-52); ALBUMIN 3.5 g/dL (3.5-5.0); ALKALINE PHOSPHATASE 45 U/L (38-126); ANION GAP 9 (5-19); ASPARTATE AMINO TRANSFERASE 19 U/L (14-36); BILIRUBIN,DIRECT 0.2 mg/dL (0.0-0.4); BILIRUBIN,TOTAL 0.3 mg/dL (0.2-1.3); BLOOD UREA NITROGEN 5 mg/dL (7-20); CALCIUM 8.6 mg/dL (8.4-10.2); CARBON DIOXIDE 27 mmol/L (22-30); CHLORIDE 100 mmol/L (98-107); GLUCOSE 93 mg/dL (75-110); POTASSIUM 3.9 mmol/L (3.6-5.0); SODIUM 136.4 mmol/L (137-145); TOTAL PROTEIN 6.2 g/dL (6.3-8.2)
[2019-02-17] MEDS: GUAIFENESIN/D-METHORPHAN (200-20 MG) SYRUP 10 ML PO PRN (09:55)
[2019-02-17] MEDS: CIPROFLOXACIN-HC OTIC SUSP 10 ML AD SCH ×2 (09:55→17:18)
[2019-02-17] MEDS: ENOXAPARIN SODIUM INJ 40 MG/0.4 ML DISP.SYRIN SUBCUT SCH (09:55)
--- NOTE | 2019-02-17 11:38 | PDOC PROGRESS REPORT ---
Subjective Progress Note for:: 02/17/19 Subjective:: 28 year old female with a history of fever associated with cough nausea for the last 3 weeks she was treated with outpatient antibiotic therapy Z-Ronald and Ceftin without any success, she had 4 x-rays and one CT scan as an outpatient latest CT scan on Friday shows right sided small pleural effusion. PE is ruled out no obvious pneumonia she came in with a temperature of 103 today associated with nausea headaches cough with greenish sputum. Work-up was done in the emergency room shows chest x-ray was normal WBC count is 11,100. Fever of 103 medical consult was called for admission in the emergency room patient was given IV Rocephin and IV azithromycin. I went to examine the patient and discussed the results including labs and x-ray reports and plan of care she agreed to stay in the hospital for IV antibiotic therapy. 02/[id number]-fbwb-old female admitted for pneumonia with failed outpatient treatment she has a T-max of 100.8 this morning presently on IV levofloxacillin. Patient is allergic to penicillins. I will add IV clindamycin to the medicati on. 02/17/[id number]-wbib-old female admitted for failed outpatient treatment for pneumonia. T-max is 98.6 today presently on IV levo floxacillin and IV clindamycin. Chest x-ray suggestive of mild right-sided atelectasis. WBC count is 5.5. Blood cultures and sputum cultures are negative so far. Complaining of right sided chest pain requesting K pad. Reason For Visit: SEPSIS,PNEUMONIA Physical Exam Vital Signs: Temp Pulse Resp BP Pulse Ox 99.0 F 103 H 16 100/57 L 97 02/17/19 07:59 02/17/19 08:37 02/17/19 08:37 02/17/19 07:59 02/17/19 08:37 Intake & Output 02/16/19 02/17/19 02/18/19 06:59 06:59 06:59 Intake Total 3000 4450 Balance 3000 4450 Weight 64.3 kg 69.7 kg General appearance: PRESENT: no acute distress Head exam: PRESENT: atraumatic Eye exam: PRESENT: PERRLA Mouth exam: PRESENT: dry mucosa Teeth exam: PRESENT: poor dentation Neck exam: ABSENT: carotid bruit, JVD, lymphadenopathy, thyromegaly Respiratory exam: PRESENT: decreased breath sounds Cardiovascular exam: PRESENT: tachycardia GI/Abdominal exam: PRESENT: normal bowel sounds, soft. ABSENT: distended, guarding, mass, organolmegaly, rebound, tenderness Rectal exam: PRESENT: deferred Extremities exam: PRESENT: full ROM. ABSENT: calf tenderness, clubbing, pedal edema Neurological exam: PRESENT: alert, awake, oriented to person, oriented to place, oriented to time, oriented to situation, CN II-XII grossly intact. ABSENT: motor sensory deficit Psychiatric exam: PRESENT: appropriate affect, normal mood. ABSENT: homicidal ideation, suicidal ideation Results Laboratory Results: 02/17/19 07:33 02/17/19 07:33 02/17/19 02/17/19 07:33 07:33 WBC 5.5 RBC 3.79 Hgb 11.0 L Hct 32.1 L MCV 85 MCH 28.9 MCHC 34.1 RDW 13.8 Plt Count 193 Seg Neutrophils % 73.6 Lymphocytes % 15.9 Monocytes % 9.9 Eosinophils % 0.2 Basophils % 0.4 Absolute Neutrophils 4.1 Absolute Lymphocytes 0.9 Absolute Monocytes 0.5 Absolute Eosinophils 0.0 Absolute Basophils 0.0 Sodium 136.4 L Potassium 3.9 Chloride 100 Carbon Dioxide 27 Anion Gap 9 BUN 5 L Creatinine 0.51 L Est GFR ( Amer) > 60 Est GFR (Non-Af Amer) > 60 Glucose 93 Calcium 8.6 Magnesium 1.8 Total Bilirubin 0.3 AST 19 ALT 17 Alkaline Phosphatase 45 Total Protein 6.2 L Albumin 3.5 02/15/19 16:44 Sputum Gram Stain - Final 02/15/19 16:44 Sputum Sputum Culture - Final NORMAL ZOIE 02/15/19 02/15/19 02/15/19 17:45 17:45 23:28 Creatine Kinase 24 L 27 L CK-MB (CK-2) < 0.22 02/15/19 02/16/19 02/16/19 23:28 06:00 06:00 Creatine Kinase 22 L CK-MB (CK-2) < 0.22 < 0.22 Impressions: Chest X-Ray 02/16/19 00:00 IMPRESSION: Minimal left basilar subsegmental atelectasis. No dense consolidation or pleural effusion. Assessment and Plan - Diagnosis (1) Pneumonia Qualifiers: Pneumonia type: due to unspecified organism Laterality: right Lung location: unspecified part of lung Qualified Code(s): J18.9 - Pneumonia, unspecified organism Is this a current diagnosis for this admission?: Yes Plan: 02/15/2019-patient is going to be admitted as inpatient for failed outpatient pneumonia she is going to be admitted as inpatient for failed outpatient antibiotic therapy patient is going to be started on IV levofloxacillin and to be placed in telemetry. To put the patient on telemetry monitoring because of tachycardia. Sputum cultures blood cultures are requested. GI prophylaxis DVT prophylaxis initiated. Placed on oxygen 2 L nasal cannula. Started on levo albuterol nebulizations every 4 as needed. 02/16/2019-this 28-year-old female admitted for failed outpatient treatment for pneumonia presently-IV levo floxacillin T-max is 100.6. Sputum cultures blood tests are pending. No acute events. Plan is to continue the present management at this point. 02/17/[id number]-zmrj-old female admitted for failed outpatient treatment for pneumonia presently on IV levo floxacillin and IV clindamycin. Yesterday after receiving 1 dose of IV vancomycin she is complaining of terrible headaches burning sensation in the scalp we gave her 25 mg of iv Vistaril and discontinued vancomycin. (2) Sepsis Qualifiers: Sepsis type: sepsis due to unspecified organism Qualified Code(s): A41.9 - Sepsis, unspecified organism Is this a current diagnosis for this admission?: Yes Plan: 02/15/2019-patient admitted with fever tachycardia shortness of breath and CAT scan shows possible right pleural effusion with atelectasis adjacent atelectasis. WBC count is 11,100. Heart rate is around 121 at the time of my examination. Sputum cultures blood cultures are requested. 02/16/2019-patient came in with fever of 103, tachycardia, shortness of breath and CT scan shows right pleural effusion with adjacent atelectasis. WBC count yesterday was 11,000. Improved to 7200 today. Plan is to continue IV levo floxacillin and added IV clindamycin from today. Sputum culture showing gram- positive cocci in chains and blood cultures are pending. 02/17/2019-I think sepsis symptoms are resolving. Blood pressure is 110/68 heart rate is 105 pulse ox is 98%. Cultures are negative so far. Plan is to continue the present management. Again sputum cultures came back normal respiratory zoie. (3) Conjunctivitis Qualifiers: Conjunctivitis type: acute Acute conjunctivitis type: viral Laterality: right Qualified Code(s): B30.9 - Viral conjunctivitis, unspecified Is this a current diagnosis for this admission?: Yes Plan: 02/15/2019-patient came in with right eye conjunctivitis. Started on a Cipro eyedrops. Advised about contact precautions. 02/16/2019-patient is getting Cipro eyedrops for right-sided conjunctivitis looks much improved compared to yesterday. 02/17/[id number]-cuosa-ibe conjunctivitis is resolving. - Time Time Spent with patient: 15-24 minutes Medications reviewed and adjusted accordingly: Yes Anticipated discharge: Home
[2019-02-17 15:00] LABS: VANCOMYCIN,TROUGH < 5.0 ug/mL (5.0-20.0)
[2019-02-17] MEDS: ACETAMINOPHEN 325 MG TABLET PO PRN (17:17)
[2019-02-17] MEDS: LEVOFLOXACIN 500 MG/D5W RTU 500 MG/100 ML RTUPB IV SCH (17:18)
[2019-02-18] MEDS: NORMAL SALINE 1000 ML 1,000 ML IV PRN ×3 (01:20→19:03)
[2019-02-18] MEDS: BENZOCAINE/MENTHOL SORE THROAT LOZENGE BUCCAL PRN (01:22)
[2019-02-18] MEDS: OXYCODONE-ACETAMINOPHEN 5-325 MG TABLET PO PRN (02:07)
[2019-02-18] MEDS: LEVALBUTEROL HCL NEB 0.63 MG/3 ML AMPUL NEB SCH ×4 (02:19→22:23)
[2019-02-18] MEDS: CLINDAMYCIN 600 MG/D5W RTU 600 MG/50 ML RTUPB IV SCH ×3 (05:37→21:59)
[2019-02-18] MEDS: PANTOPRAZOLE SODIUM 40 MG TABLET.DR PO SCH ×2 (05:37→17:18)
[2019-02-18] MEDS: GUAIFENESIN/D-METHORPHAN (200-20 MG) SYRUP 10 ML PO PRN (08:05)
[2019-02-18] MEDS: CIPROFLOXACIN-HC OTIC SUSP 10 ML AD SCH ×2 (10:07→17:18)
[2019-02-18] MEDS: ENOXAPARIN SODIUM INJ 40 MG/0.4 ML DISP.SYRIN SUBCUT SCH (10:40)
--- NOTE | 2019-02-18 10:52 | PDOC PROGRESS REPORT ---
Subjective Progress Note for:: 02/18/19 Subjective:: 28 year old female with a history of fever associated with cough nausea for the last 3 weeks she was treated with outpatient antibiotic therapy Z-Ronald and Ceftin without any success, she had 4 x-rays and one CT scan as an outpatient latest CT scan on Friday shows right sided small pleural effusion. PE is ruled out no obvious pneumonia she came in with a temperature of 103 today associated with nausea headaches cough with greenish sputum. Work-up was done in the emergency room shows chest x-ray was normal WBC count is 11,100. Fever of 103 medical consult was called for admission in the emergency room patient was given IV Rocephin and IV azithromycin. I went to examine the patient and discussed the results including labs and x-ray reports and plan of care she agreed to stay in the hospital for IV antibiotic therapy. 02/16/[id number]-pdux-old female admitted for pneumonia with failed outpatient treatment she has a T-max of 100.8 this morning presently on IV levofloxacillin. Patient is allergic to penicillins. I will add IV clindamycin to the medicati on. 02/17/[id number]-mhmc-old female admitted for failed outpatient treatment for pneumonia. T-max is 98.6 today presently on IV levo floxacillin and IV clindamycin. Chest x-ray suggestive of mild right-sided atelectasis. WBC count is 5.5. Blood cultures and sputum cultures are negative so far. Complaining of right sided chest pain requesting K pad. 02/18/[id number]-lkrk-old female admitted for outpatient failed outpatient treatment for pneumonia afebrile now T-max is 98.2 no complaints. Sputum cultures blood cultures came back negative. Urine culture came back positive for Fiordaliza may be secondary to multiple antibiotic she is on recently. To start on Diflucan 100 mg p.o. daily. Still complaining of weakness tiredness. Probably we may able to discharge her tomorrow. Reason For Visit: SEPSIS,PNEUMONIA Physical Exam Vital Signs: Temp Pulse Resp BP Pulse Ox 98.9 F 93 18 104/66 97 02/17/19 15:38 02/18/19 07:46 02/18/19 07:46 02/17/19 15:38 02/18/19 07:46 Intake & Output 02/17/19 02/18/19 02/19/19 06:59 06:59 06:59 Intake Total 4450 1640 1050 Balance 4450 1640 1050 Weight 69.7 kg 66.5 kg General appearance: PRESENT: no acute distress, cooperative, well-developed Head exam: PRESENT: atraumatic Eye exam: PRESENT: PERRLA Mouth exam: PRESENT: moist, tongue midline Teeth exam: PRESENT: poor dentation Neck exam: ABSENT: carotid bruit, JVD, lymphadenopathy, thyromegaly Respiratory exam: PRESENT: decreased breath sounds Cardiovascular exam: PRESENT: RRR. ABSENT: diastolic murmur, rubs, systolic murmur GI/Abdominal exam: PRESENT: normal bowel sounds, soft. ABSENT: distended, guarding, mass, organolmegaly, rebound, tenderness Rectal exam: PRESENT: deferred Neurological exam: PRESENT: alert, awake, oriented to person, oriented to place, oriented to time, oriented to situation, CN II-XII grossly intact. ABSENT: motor sensory deficit Psychiatric exam: PRESENT: appropriate affect, normal mood. ABSENT: homicidal ideation, suicidal ideation Results Laboratory Results: 02/17/19 07:33 02/17/19 07:33 02/15/19 16:44 Clean Catch Midstream Urine Culture - Final C.albicans/C.dubliniensis 02/15/19 16:44 Sputum Gram Stain - Final 02/15/19 16:44 Sputum Sputum Culture - Final NORMAL ZOIE 02/15/19 02/15/19 02/15/19 17:45 17:45 23:28 Creatine Kinase 24 L 27 L CK-MB (CK-2) < 0.22 02/15/19 02/16/19 02/16/19 23:28 06:00 06:00 Creatine Kinase 22 L CK-MB (CK-2) < 0.22 < 0.22 Impressions: Chest X-Ray 02/16/19 00:00 IMPRESSION: Minimal left basilar subsegmental atelectasis. No dense consolidation or pleural effusion. Assessment and Plan - Diagnosis (1) Pneumonia Qualifiers: Pneumonia type: due to unspecified organism Laterality: right Lung location: unspecified part of lung Qualified Code(s): J18.9 - Pneumonia, unspecified organism Is this a current diagnosis for this admission?: Yes Plan: 02/15/2019-patient is going to be admitted as inpatient for failed outpatient pneumonia she is going to be admitted as inpatient for failed outpatient antibiotic therapy patient is going to be started on IV levofloxacillin and to be placed in telemetry. To put the patient on telemetry monitoring because of tachycardia. Sputum cultures blood cultures are requested. GI prophylaxis DVT prophylaxis initiated. Placed on oxygen 2 L nasal cannula. Started on levo albuterol nebulizations every 4 as needed. 02/16/2019-this 28-year-old female admitted for failed outpatient treatment for pneumonia presently-IV levo floxacillin T-max is 100.6. Sputum cultures blood tests are pending. No acute events. Plan is to continue the present management at this point. 02/17/[id number]-bsdv-old female admitted for failed outpatient treatment for pneumonia presently on IV levo floxacillin and IV clindamycin. Yesterday after receiving 1 dose of IV vancomycin she is complaining of terrible headaches burning sensation in the scalp we gave her 25 mg of iv Vistaril and discontinued vancomycin. 02/18/[id number]-tphi-old female admitted for failed outpatient treatment for pneumonia. Getting IV levo floxacillin and IV clindamycin. Afebrile. Sputum cultures blood cultures came back negative. Plan is to continue the present management. (2) Sepsis Qualifiers: Sepsis type: sepsis due to unspecified organism Qualified Code(s): A41.9 - Sepsis, unspecified organism Is this a current diagnosis for this admission?: Yes Plan: 02/15/2019-patient admitted with fever tachycardia shortness of breath and CAT scan shows possible right pleural effusion with atelectasis adjacent atelectasis. WBC count is 11,100. Heart rate is around 121 at the time of my examination. Sputum cultures blood cultures are requested. 02/16/2019-patient came in with fever of 103, tachycardia, shortness of breath and CT scan shows right pleural effusion with adjacent atelectasis. WBC count yesterday was 11,000. Improved to 7200 today. Plan is to continue IV levo floxacillin and added IV clindamycin from today. Sputum culture showing gram- positive cocci in chains and blood cultures are pending. 02/17/2019-I think sepsis symptoms are resolving. Blood pressure is 110/68 heart rate is 105 pulse ox is 98%. Cultures are negative so far. Plan is to continue the present management. Again sputum cultures came back normal respiratory zoie. 02/18/2019-sepsis is resolved. Afebrile. Blood pressures are stable. Pulse ox is 96% on room air. Sputum cultures blood cultures are negative. Urine culture shows Fiordaliza to start on Diflucan today. (3) Conjunctivitis Qualifiers: Conjunctivitis type: acute Acute conjunctivitis type: viral Laterality: r ight Qualified Code(s): B30.9 - Viral conjunctivitis, unspecified Is this a current diagnosis for this admission?: Yes Plan: 02/15/2019-patient came in with right eye conjunctivitis. Started on a Cipro eyedrops. Advised about contact precautions. 02/16/2019-patient is getting Cipro eyedrops for right-sided conjunctivitis looks much improved compared to yesterday. 02/17/[id number]-fsbzo-wab conjunctivitis is resolving. 02/18/2019-right eye conjunctivitis resolved. - Time Time Spent with patient: 25-34 minutes Medications reviewed and adjusted accordingly: Yes Anticipated discharge: Home
[2019-02-18] MEDS: FLUCONAZOLE 100 MG TABLET PO SCH (11:54)
[2019-02-18] MEDS: ACETAMINOPHEN 325 MG TABLET PO PRN (17:17)
[2019-02-18] MEDS: LEVOFLOXACIN 500 MG/D5W RTU 500 MG/100 ML RTUPB IV SCH (17:18)
[2019-02-19] MEDS ORDERED: NYSTATIN CREAM 15 GM TP PRN (01:52)
[2019-02-19] MEDS ORDERED: NYSTATIN CREAM 15 GM ONE (03:07)
[2019-02-19] MEDS: LEVALBUTEROL HCL NEB 0.63 MG/3 ML AMPUL NEB SCH ×3 (03:29→13:37)
[2019-02-19] MEDS: NORMAL SALINE 1000 ML 1,000 ML IV PRN (03:31)
[2019-02-19] MEDS: GUAIFENESIN/D-METHORPHAN (200-20 MG) SYRUP 10 ML PO PRN (03:32)
[2019-02-19] MEDS: PANTOPRAZOLE SODIUM 40 MG TABLET.DR PO SCH (05:10)
[2019-02-19] MEDS: CLINDAMYCIN 600 MG/D5W RTU 600 MG/50 ML RTUPB IV SCH (05:10)
[2019-02-19] MEDS: ACETAMINOPHEN 325 MG TABLET PO PRN (08:45)
[2019-02-19] MEDS: ENOXAPARIN SODIUM INJ 40 MG/0.4 ML DISP.SYRIN SUBCUT SCH (09:29)
[2019-02-19] MEDS: FLUCONAZOLE 100 MG TABLET PO SCH (09:29)
[2019-02-19] MEDS: CIPROFLOXACIN-HC OTIC SUSP 10 ML AD SCH (09:29)
--- NOTE | 2019-02-19 10:38 | PDOC DISCHARGE SUMMARY ---
General - Admit/Disc Date/PCP Admission Date/Primary Care Provider: 02/15/19 16:59 TRISTAN OWENS MD Discharge Date: 02/19/19 - Discharge Diagnosis (1) Pneumonia Is this a current diagnosis for this admission?: Yes Summary: 02/15/2019-patient is going to be admitted as inpatient for failed outpatient pneumonia she is going to be admitted as inpatient for failed outpatient antibiotic therapy patient is going to be started on IV levofloxacillin and to be placed in telemetry. To put the patient on telemetry monitoring because of tachycardia. Sputum cultures blood cultures are requested. GI prophylaxis DVT prophylaxis initiated. Placed on oxygen 2 L nasal cannula. Started on levo albuterol nebulizations every 4 as needed. 02/16/2019-this 28-year-old female admitted for failed outpatient treatment for pneumonia presently-IV levo floxacillin T-max is 100.6. Sputum cultures blood tests are pending. No acute events. Plan is to continue the present management at this point. 02/17/[id number]-flql-old female admitted for failed outpatient treatment for pneumonia presently on IV levo floxacillin and IV clindamycin. Yesterday after receiving 1 dose of IV vancomycin she is complaining of terrible headaches burning sensation in the scalp we gave her 25 mg of iv Vistaril and discontinued vancomycin. 02/18/[id number]-vctv-old female admitted for failed outpatient treatment for pneumonia. Getting IV levo floxacillin and IV clindamycin. Afebrile. Sputum cultures blood cultures came back negative. Plan is to continue the present management. 02/19/2019-[facility]. female admitted with pneumonia and a failed outpatient antibiotic treatment. No acute events in the hospital. Chest x-ray is negative for pneumonia. CT chest was done as an outpatient suggestive of small right pleural effusion with adjacent atelectasis and questionable pneumonia. Patient might have a community-acquired pneumonia most likely gram-positive organisms are responsible. Blood cultures and sputum cultures are negative. She was treated with IV clindamycin and levo floxacillin. She is going to go home on antibiotic therapy. (2) Sepsis Is this a current diagnosis for this admission?: Yes Summary: 02/15/2019-patient admitted with fever tachycardia shortness of breath and CAT scan shows possible right pleural effusion with atelectasis adjacent atelectasis. WBC count is 11,100. Heart rate is around 121 at the time of my examination. Sputum cultures blood cultures are requested. 02/16/2019-patient came in with fever of 103, tachycardia, shortness of breath and CT scan shows right pleural effusion with adjacent atelectasis. WBC count yesterday was 11,000. Improved to 7200 today. Plan is to continue IV levo floxacillin and added IV clindamycin from today. Sputum culture showing gram- positive cocci in chains and blood cultures are pending. 02/17/2019-I think sepsis symptoms are resolving. Blood pressure is 110/68 heart rate is 105 pulse ox is 98%. Cultures are negative so far. Plan is to continue the present management. Again sputum cultures came back normal respiratory zoie. 02/18/2019-sepsis is resolved. Afebrile. Blood pressures are stable. Pulse ox is 96% on room air. Sputum cultures blood cultures are negative. Urine culture shows Fiordaliza to start on Diflucan today. 02/19/2019-patient came in with pneumonia tachycardia fevers. Meeting the criteria for sepsis. Cultures are negative but urine culture came back positive for Fiordaliza most likely secondary to multiple antibiotic therapy. She is going home on nystatin cream. (3) Conjunctivitis Is this a current diagnosis for this admission?: Yes Summary: 02/15/2019-patient came in with right eye conjunctivitis. Started on a Cipro eyedrops. Advised about contact precautions. 02/16/2019-patient is getting Cipro eyedrops for right-sided conjunctivitis looks much improved compared to yesterday. 02/17/[id number]-iomvr-vsb conjunctivitis is resolving. 02/18/2019-right eye conjunctivitis resolved. 02/19/2019-patient has a right eye conjunctivitis. Going home on Cipro eyedrops. - Additional Information Resuscitation Status: Full Code Discharge Activity: Activity As Tolerated Prescriptions: Ciprofloxacin HCl/Hc [Cipro Hc Otic Suspension 10 ml] 1 drop AD BID #1 bottle Fluconazole [Diflucan 100 mg Tablet] 100 mg PO DAILY #7 tablet Guaifenesin/D-Methorphan Hb [Robitussin-Dm Syrup 10 ml Udcup] 10 ml PO QIDP PRN #100 ml PRN Reason: Nystatin [Mycostatin Cream 15 gm] 1 applic TP QIDP PRN #1 tube PRN Reason: Home Medications: Ciprofloxacin HCl/Hc [Cipro Hc Otic Suspension 10 ml] 1 drop AD BID #1 bottle 02/19/19 Fluconazole [Diflucan 100 mg Tablet] 100 mg PO DAILY #7 tablet 02/19/19 Guaifenesin/D-Methorphan Hb [Robitussin-Dm Syrup 10 ml Udcup] 10 ml PO QIDP PRN #100 ml 02/19/19 Nystatin [Mycostatin Cream 15 gm] 1 applic TP QIDP PRN #1 tube 02/19/19 History of Present Illness History of Present Illness: NATALIE VINSON is a 28 year old female with a history of fever associated with cough nausea for the last 3 weeks she was treated with outpatient antibiotic therapy Z-Ronald and Ceftin without any success, she had 4 x-rays and one CT scan as an outpatient latest CT scan on Friday shows right sided small pleural effusion. PE is ruled out no obvious pneumonia she came in with a temperature of 103 today associated with nausea headaches cough with greenish sputum. Work- up was done in the emergency room shows chest x-ray was normal WBC count is 11,100. Fever of 103 medical consult was called for admission in the emergency room patient was given IV Rocephin and IV azithromycin. I went to examine the patient and discussed the results including labs and x-ray reports and plan of care she agreed to stay in the hospital for IV antibiotic therapy. Hospital Course Hospital Course: 1-year-old female admitted with failed outpatient treatment for pneumonia she was treated with levo floxacillin and IV clindamycin was added a later on she has allergic kind of reaction to IV vancomycin which was discontinued during the hospital stay. No acute events in the hospital stay. Afebrile for the last 48 hours. Blood cultures sputum cultures came back negative follow-up chest x-ray is negative for pneumonia. Urine culture is positive for Fiordaliza she is on nystatin. Physical Exam Vital Signs: Temp Pulse Resp BP Pulse Ox 97.8 F 93 19 108/62 97 02/19/19 07:48 02/19/19 08:28 02/19/19 08:28 02/19/19 07:48 02/19/19 08:28 Intake & Output 02/18/19 02/19/19 02/20/19 06:59 06:59 06:59 Intake Total 1640 4400 706 Balance 1640 4400 706 Weight 66.5 kg 67.8 kg General appearance: PRESENT: no acute distress Head exam: PRESENT: atraumatic Eye exam: PRESENT: PERRLA Mouth exam: PRESENT: moist, tongue midline Teeth exam: PRESENT: poor dentation Neck exam: ABSENT: carotid bruit, JVD, lymphadenopathy, thyromegaly Respiratory exam: PRESENT: clear to auscultation tammie. ABSENT: rales, rhonchi, wheezes Cardiovascular exam: PRESENT: RRR. ABSENT: diastolic murmur, rubs, systolic murmur GI/Abdominal exam: PRESENT: normal bowel sounds, soft. ABSENT: distended, guarding, mass, organolmegaly, rebound, tenderness Rectal exam: PRESENT: deferred Neurological exam: PRESENT: alert, awake, oriented to person, oriented to place, oriented to time, oriented to situation, CN II-XII grossly intact. ABSENT: motor sensory deficit Psychiatric exam: PRESENT: appropriate affect, normal mood. ABSENT: homicidal ideation, suicidal ideation Results Laboratory Results: 02/17/19 07:33 02/17/19 07:33 02/15/19 02/15/19 02/15/19 17:45 17:45 23:28 Creatine Kinase 24 L 27 L CK-MB (CK-2) < 0.22 02/15/19 02/16/19 02/16/19 23:28 06:00 06:00 Creatine Kinase 22 L CK-MB (CK-2) < 0.22 < 0.22 Impressions: Chest X-Ray 02/16/19 00:00 IMPRESSION: Minimal left basilar subsegmental atelectasis. No dense consolidation or pleural effusion. Qualifiers - * PATIENT BEING DISCHARGED WITH ANY OF THE FOLLOWING DIAGNOSIS: No VTE patient discharged on overlapping Therapy?: No Acute Heart Failure - Is this a Heart Failure Patient?: No
[2019-02-19 13:38] VITALS: BP 102/58
== END 2019-02-19 14:55 | disposition home or self-care (01) | DRG 871 ==
LOC: ER 14:15 → EH 16:59 → 4S 20:00
PROVIDERS: ADMIT Internal Medicine; ATTEND Internal Medicine
DX: A41.9 Sepsis, unspecified organism (principal); J18.9 Pneumonia, unspecified organism; H10.31 Unspecified acute conjunctivitis, right eye; Z82.49 Family history of ischemic heart disease and other diseases of the circulatory system; Z88.0 Allergy status to penicillin; Z88.8 Allergy status to other drugs, medicaments and biological substances; Z83.3 Family history of diabetes mellitus
CPT/HCPCS: 36415; 71046; 80053; 80061; 80202; 81001; 81025; 82150; 82550; 82553; 82803; 83036; 83605; 83735; 84443; 85025; 85027; 85610; 87040; 87070; 87086; 87205; 87804; 93005; 93010; 94640; 96365; 99285; J0456; J0696; J1650; J1885; J1956; J2405; J3370; J3410; J3490; J7030; J7060; J7614

== ENCOUNTER → 2019-02-24 | Outpatient (CLI) | payer OTHER ==
--- NOTE | 2019-02-24 16:05 | RADIOLOGY REPORT (SQ) ---
EXAM DESCRIPTION: CHEST PA/LATERAL COMPLETED DATE/TIME: 02/24/2019 3:15 pm REASON FOR STUDY: PNEUMONIA OF RT LOWER LOBE DUE TO INFECTIOUS ORGANISM COMPARISON: 02/16/2019 EXAM PARAMETERS: NUMBER OF VIEWS: two views TECHNIQUE: Digital Frontal and Lateral radiographic views of the chest acquired. RADIATION DOSE: NA LIMITATIONS: none FINDINGS: LUNGS AND PLEURA: No opacities, masses or pneumothorax. No pleural effusion. MEDIASTINUM AND HILAR STRUCTURES: No masses or contour abnormalities. HEART AND VASCULAR STRUCTURES: Heart normal size. No evidence for failure. BONES: No acute findings. HARDWARE: None in the chest. OTHER: No other significant finding. IMPRESSION: NO SIGNIFICANT RADIOGRAPHIC FINDING IN THE CHEST. TECHNICAL DOCUMENTATION: JOB ID: [id number] [employer]- All Rights Reserved Reading location - IP/workstation name: [email or web address]
== END ==
LOC: OD 15:00
PROVIDERS: ATTEND Family Medicine
DX: J18.1 Lobar pneumonia, unspecified organism (principal)
CPT/HCPCS: 71046

== ENCOUNTER → 2019-03-02 | Outpatient (CLI) | payer OTHER ==
[2019-03-02 15:35] LABS: ABSOLUTE BASOPHILS # (AUTO) 0.1 10^3/uL (0.0-0.2); ABSOLUTE EOSINOPHILS # (AUTO) 0.2 10^3/uL (0.0-0.6); ABSOLUTE LYMPHOCYTES (AUTO) 2.4 10^3/uL (0.5-4.7); ABSOLUTE MONOCYTES (AUTO) 0.7 10^3/uL (0.1-1.4); ABSOLUTE NEUT (AUTO) 5.5 10^3/uL (1.7-8.2); BASOPHILS % (AUTO) 1.3 % (0-2); EOSINOPHILS % (AUTO) 2.7 % (0-6); HEMOGLOBIN 11.4 g/dL (12.0-15.5); LYMPHOCYTES % (AUTO) 27.3 % (13-45); MEAN CORPUSCULAR HEMOGLOBIN 28.6 pg (27.0-33.4); MEAN CORPUSCULAR HGB CONC 33.7 g/dL (32.0-36.0); MEAN CORPUSCULAR VOLUME 85 fl (80-97); MONOCYTES % (AUTO) 7.3 % (3-13); PLATELET COUNT 290 10^3/uL (150-450); RED CELL DISTRIBUTION WIDTH 14.5 % (11.5-14.0); SEGMENTED NEUTROPHILS % (AUTO) 61.4 % (42-78); TOTAL CELLS COUNTED % (AUTO) 100 %; WHITE BLOOD COUNT 8.9 10^3/uL (4.0-10.5)
--- NOTE | 2019-03-02 17:14 | RADIOLOGY REPORT (SQ) ---
EXAM DESCRIPTION: CHEST PA/LATERAL COMPLETED DATE/TIME: 03/02/2019 2:53 pm REASON FOR STUDY: COUGH COMPARISON: Chest films 02/24/2019, 02/16/2019 CT chest 02/13/2019 EXAM PARAMETERS: NUMBER OF VIEWS: two views TECHNIQUE: Digital Frontal and Lateral radiographic views of the chest acquired. RADIATION DOSE: NA LIMITATIONS: none FINDINGS: LUNGS AND PLEURA: Minimal left retrocardiac atelectasis. Lungs otherwise well inflated an d clear. No pleural effusion. No pneumothorax. MEDIASTINUM AND HILAR STRUCTURES: No masses or contour abnormalities. HEART AND VASCULAR STRUCTURES: Heart normal size. No evidence for failure. BONES: No acute findings. HARDWARE: None in the chest. OTHER: No other significant finding. IMPRESSION: Minimal left retrocardiac atelectasis TECHNICAL DOCUMENTATION: JOB ID: [id number] [employer]- All Rights Reserved Reading location - IP/workstation name: [email or web address]
== END ==
LOC: OD 14:29
PROVIDERS: ATTEND Nurse Practitioner Family
DX: R05 Cough (principal)
CPT/HCPCS: 36415; 71046; 85025

== ENCOUNTER 2019-03-16 20:30 | Emergency (ER) | payer OTHER ==
--- NOTE | 2019-03-16 23:20 | EKG REPORT ---
SEVERITY:- OTHERWISE NORMAL ECG - SINUS TACHYCARDIA : Confirmed by: Corie Burgess 16-Mar-2019 23:19:29
[2019-03-17] MEDS ORDERED: IPRATROPIUM/ALBUTEROL 0.5-2.5 MG/3 ML AMPUL NEB ONE (01:09)
[2019-03-17] MEDS ORDERED: PREDNISONE 20 MG TABLET PO ONE (01:09)
--- NOTE | 2019-03-17 01:11 | ER Document Report ---
ED Medical Screen (RME) - General Chief Complaint: Chest Pain Stated Complaint: CHEST PAIN, FATIGUE, DIZZINESS Time Seen by Provider: 03/17/19 01:09 Primary Care Provider: ALEXIS SOARES FNP-BC [Primary Care Provider] - Follow up as needed Notes: 28-year-old female chief complaint of developing cough and shortness of breath over the past several days. States she is coughing up green mucus. Denies fever. Hospitalized with pneumonia last month for 4 days reportedly. Denies smoking, history of asthma, or any diagnosed medical problems. Completed antibiotics at the beginning of the month. TRAVEL OUTSIDE OF THE [place] IN LAST 30 DAYS: No - Related Data Allergies/Adverse Reactions: diphenhydramine [From Benadryl] Allergy (Verified 02/15/19 14:19) Penicillins Allergy (Verified 02/15/19 14:19) Past Medical History Neurological Medical History: Reports: Hx Seizures - febrile seizures Renal/ Medical History: Denies: Hx Peritoneal Dialysis Physical Exam - Vital signs Vitals: Temp Pulse Resp BP Pulse Ox 98.3 F 103 H 12 114/71 99 03/16/19 20:55 03/16/19 20:55 03/16/19 20:55 03/16/19 20:55 03/16/19 20:55 - Respiratory Breath sounds: Other - A few scattered rhonchi, expiratory wheezes, however patient is not in respiratory distress Course - Re-evaluation Re-evalutation: I have greeted and performed a rapid initial assessment of this patient. A comprehensive ED assessment and evaluation of the patient, analysis of test results and completion of the medical decision making process will be conducted by additional ED providers. - Vital Signs Vital signs: Temp Pulse Resp BP Pulse Ox 98.3 F 103 H 12 114/71 99 03/16/19 20:55 03/16/19 20:55 03/16/19 20:55 03/16/19 20:55 03/16/19 20:55 Doctor's Discharge - Discharge Referrals: ALEXIS SOARES FNP-BC [Primary Care Provider] - Follow up as needed
[2019-03-17 01:39] LABS: ABSOLUTE BASOPHILS # (AUTO) 0.1 10^3/uL (0.0-0.2); ABSOLUTE EOSINOPHILS # (AUTO) 0.2 10^3/uL (0.0-0.6); ABSOLUTE LYMPHOCYTES (AUTO) 2.9 10^3/uL (0.5-4.7); ABSOLUTE MONOCYTES (AUTO) 0.7 10^3/uL (0.1-1.4); ABSOLUTE NEUT (AUTO) 3.8 10^3/uL (1.7-8.2); BASOPHILS % (AUTO) 0.9 % (0-2); EOSINOPHILS % (AUTO) 3.2 % (0-6); HEMATOCRIT 35.7 % (36.0-47.0); HEMOGLOBIN 11.9 g/dL (12.0-15.5); LYMPHOCYTES % (AUTO) 37.7 % (13-45); MEAN CORPUSCULAR HEMOGLOBIN 29.2 pg (27.0-33.4); MEAN CORPUSCULAR HGB CONC 33.5 g/dL (32.0-36.0); MEAN CORPUSCULAR VOLUME 87 fl (80-97); MONOCYTES % (AUTO) 8.9 % (3-13); PLATELET COUNT 226 10^3/uL (150-450); RED BLOOD COUNT 4.09 10^6/uL (3.72-5.28); RED CELL DISTRIBUTION WIDTH 15.3 % (11.5-14.0); SEGMENTED NEUTROPHILS % (AUTO) 49.3 % (42-78); TOTAL CELLS COUNTED % (AUTO) 100 %; WHITE BLOOD COUNT 7.7 10^3/uL (4.0-10.5)
[2019-03-17 02:06] LABS: ANION GAP 11 (5-19); BLOOD UREA NITROGEN 22 mg/dL (7-20); CALCIUM 10.1 mg/dL (8.4-10.2); CARBON DIOXIDE 27 mmol/L (22-30); CHLORIDE 104 mmol/L (98-107); GLUCOSE 90 mg/dL (75-110); POTASSIUM 4.5 mmol/L (3.6-5.0)
--- NOTE | 2019-03-17 02:25 | RADIOLOGY REPORT (SQ) ---
EXAM DESCRIPTION: X-ray two view chest. CLINICAL HISTORY: 28 years Female, productive cough, recent pneumonia, SOB COMPARISON: 03/02/2019 TECHNIQUE: PA and Lateral views of the chest performed on 03/17/2019 at 1:49 AM FINDINGS: The lungs are well expanded and are clear. The costophrenic sulci are clear. There is no evidence of a pneumothorax. The cardiac silhouette is normal in size. The mediastinal contours are normal. No acute osseous abnormalities are identified. No focal soft tissue abnormalities are identified. IMPRESSION: No evidence of acute intrathoracic disease.
--- NOTE | 2019-03-17 02:52 | ER Document Report ---
ED Respiratory Problem - General Chief Complaint: Chest Pain Stated Complaint: CHEST PAIN, FATIGUE, DIZZINESS Time Seen by Provider: 03/17/19 01:09 Primary Care Provider: ALEXIS SOARES FNP-BC [Primary Care Provider] - Follow up as needed Notes: Patient is a 28-year-old female chief complaint of developing cough and shortness of breath over the past several days. States she is coughing up green mucus. Denies fever. Hospitalized with pneumonia last month for 4 days reportedly. Denies smoking, history of asthma, or any diagnosed medical problems. Completed antibiotics at the beginning of the month. TRAVEL OUTSIDE OF THE [place] IN LAST 30 DAYS: No - Related Data Allergies/Adverse Reactions: diphenhydramine [From Benadryl] Allergy (Verified 02/15/19 14:19) Penicillins Allergy (Verified 02/15/19 14:19) Past Medical History - General Information source: Patient - Social History Smoking Status: Never Smoker Frequency of alcohol use: None Drug Abuse: None Lives with: Family Family History: Reviewed & Not Pertinent Pulmonary Medical History: Reports: Hx Pneumonia Neurological Medical History: Reports: Hx Seizures - febrile seizures Renal/ Medical History: Denies: Hx Peritoneal Dialysis - Immunizations Immunizations up to date: Yes Hx Diphtheria, Pertussis, Tetanus Vaccination: Yes Review of Systems - Review of Systems Constitutional: No symptoms reported EENT: No symptoms reported Cardiovascular: No symptoms reported Respiratory: See HPI Gastrointestinal: No symptoms reported Genitourinary: No symptoms reported Female Genitourinary: No symptoms reported Musculoskeletal: No symptoms reported Skin: No symptoms reported Hematologic/Lymphatic: No symptoms reported Neurological/Psychological: No symptoms reported Physical Exam - Vital signs Vitals: Temp Pulse Resp BP Pulse Ox 98.3 F 103 H 12 114/71 99 03/16/19 20:55 03/16/19 20:55 03/16/19 20:55 03/16/19 20:55 03/16/19 20:55 - Notes Notes: GENERAL: Alert, interacts well. No acute distress. HEAD: Normocephalic, atraumatic. EYES: Pupils equal, round, and reactive to light. Extraocular movements intact. ENT: Oral mucosa moist, tongue midline. Oropharynx unremarkable. Airway patent. Nares patent, no nasal septal hematoma, TM's intact. NECK: Full range of motion. Supple. Trachea midline. LUNGS: Occasional congested cough. Scattered expiratory wheezes, a few scattered coarse breath sounds as well. No overt rhonchi or rales. No tachypnea or respiratory distress. HEART: Regular rate and rhythm. No murmur ABDOMEN: Soft, non-tender. Non-distended. GENITOURINARY: Deferred EXTREMITIES: Moves all 4 extremities spontaneously. No edema, normal radial and dorsalis pedis pulses bilaterally. No cyanosis. BACK: no cervical, thoracic, lumbar midline tenderness. No saddle anesthesia, normal distal neurovascular exam. Moves all extremities in full range of motion. NEUROLOGICAL: Alert and oriented x3. Normal speech. Cranial nerves II through XII grossly intact. PSYCH: Normal affect, normal mood. SKIN: Warm, dry, normal turgor. No rashes or lesions noted. Course - Re-evaluation Re-evalutation: CBC, chemistry unremarkable. Chest x-ray with no acute findings. Patient has expiratory wheezes and scattered rhonchi but no tachypnea, hypoxia, or signs of distress. Presentation is most consistent with bronchitis. Patient given DuoNeb, had significant improvement. Will place on prednisone, albuterol, given spacer for home, patient requesting something to help her sleep and for cough, she was provided with this as well. Discussed expectations, follow-up, and return precautions. Patient states understanding and agreement. Stable at time of discharge. - Vital Signs Vital signs: Temp Pulse Resp BP Pulse Ox 98.1 F 87 18 112/68 99 03/17/19 02:54 03/17/19 02:54 03/17/19 02:54 03/17/19 02:54 03/17/19 02:54 - Laboratory Result Diagrams: 03/17/19 01:25 03/17/19 01:25 Laboratory results interpreted by me: 03/17/19 03/17/19 01:25 01:25 Hgb 11.9 L Hct 35.7 L RDW 15.3 H BUN 22 H - EKG Interpretation by Me Additional EKG results interpreted by me: EKG shows sinus rhythm at a rate of 100, QTC of 449, ID interval of 144. No T wave inversions or ST segment changes in consecutive leads. Normal axis. Discharge - Discharge Clinical Impression: Wheezing, Cough Upper respiratory infection Qualifiers: URI type: unspecified URI Qualified Code(s): J06.9 - Acute upper respiratory infection, unspecified Condition: Stable Disposition: HOME, SELF-CARE Additional Instructions: Your chest x-ray is normal. Your laboratory work-up is reassuring. Your evaluation is consistent with bronchitis. Take prednisone as as prescribed, and inhaler as needed, and the syrup for cough/pain at night only if needed. Do not drive while taking the syrup, do not mix with alcohol or other sedating medication. Follow-up with primary care. Return if you worsen including fever, difficulty breathing, or any other concerning or worsening symptoms. Prescriptions: Hydrocodone Bit/Homatropine [Hycodan Syrup 5-1.5 mg/5 ml Ud Cup] 5 ml PO Q4HP PRN #120 ml PRN Reason: Albuterol Sulfate [Proair HFA Inhalation Aerosol 8.5 gm MDI] 2 puff IH Q4H PRN #1 mdi PRN Reason: Prednisone [Deltasone 20 mg Tablet] 3 tab PO DAILY 5 Days tablet Referrals: ALEXIS SOARES, NIGHT NURSE-BC [Primary Care Provider] - Follow up as needed
[2019-03-17 03:32] VITALS: BP 112/68
== END 2019-03-17 03:00 | disposition home or self-care (01) ==
LOC: ER 20:30
DX: J06.9 Acute upper respiratory infection, unspecified (principal); R06.2 Wheezing; R05 Cough; R07.9 Chest pain, unspecified; R53.83 Other fatigue; R42 Dizziness and giddiness
CPT/HCPCS: 93005; 94640; 99285; 36415; 84703; 85025; 80048; 71046; 93010; J7512; J7620

== ENCOUNTER 2019-04-09 09:42 | Emergency (ER) | payer OTHER ==
[2019-04-09] MEDS ORDERED: NORMAL SALINE 1000 ML 1,000 ML IV ONE (10:07)
[2019-04-09] MEDS ORDERED: ONDANSETRON HCL INJ/PF 4 MG/2 ML SDV IV ONE (10:07)
[2019-04-09] MEDS ORDERED: KETOROLAC TROMETHAMINE INJ/PF 30 MG/1 ML SDV IV ONE (10:07)
--- NOTE | 2019-04-09 10:08 | ER Document Report ---
ED Medical Screen (RME) - General Chief Complaint: Vaginal Pain Stated Complaint: DIZZINESS Time Seen by Provider: 04/09/19 10:02 Primary Care Provider: ALEXIS SOARES FNP-BC [Primary Care Provider] - Follow up as needed Mode of Arrival: Ambulatory Information source: Patient Notes: Patient presents complaining of vaginal pain and lower pelvic pain for the past 4 days. Patient reports nausea and dizziness. Patient also complains of dysuria symptoms with vaginal discharge. Patient states that she had been treated for UTI with Macrobid over the past day but then her doctor called and told her that she did not have a UTI and that she could stop the medication. Patient denies any concerns about . Patient reports fever today of 102 at home and does not report taking anything to treat the fever. Patient is presently afebrile. I have greeted and performed a rapid initial assessment of this patient. A comprehensive ED assessment and evaluation of the patient, analysis of test results and completion of the medical decision making process will be conducted by additional ED providers. TRAVEL OUTSIDE OF THE [place] IN LAST 30 DAYS: No - Related Data Allergies/Adverse Reactions: diphenhydramine [From Benadryl] Allergy (Verified 04/09/19 09:45) Penicillins Allergy (Verified 04/09/19 09:45) vancomycin Allergy (Verified 04/09/19 09:45) Past Medical History Pulmonary Medical History: Reports: Hx Pneumonia Neurological Medical History: Reports: Hx Seizures - febrile seizures Renal/ Medical History: Denies: Hx Peritoneal Dialysis - Immunizations Immunizations up to date: Yes Hx Diphtheria, Pertussis, Tetanus Vaccination: Yes Physical Exam - Vital signs Vitals: Temp Pulse Resp BP Pulse Ox 99.3 F 107 H 16 102/64 99 04/09/19 09:55 04/09/19 09:55 04/09/19 09:55 04/09/19 09:55 04/09/19 09:55 - Abdominal Tenderness: Tender - Lower pelvic Course - Vital Signs Vital signs: Temp Pulse Resp BP Pulse Ox 99.3 F 107 H 16 102/64 99 04/09/19 09:55 04/09/19 09:55 04/09/19 09:55 04/09/19 09:55 04/09/19 09:55 Doctor's Discharge - Discharge Referrals: KARLE,ALEXIS L, AIDS COUNSELOR-BC [Primary Care Provider] - Follow up as needed
[2019-04-09 11:02] LABS: APPEARANCE,URINE SLIGHTLY-CLOUDY; BILIRUBIN,URINE NEGATIVE (NEGATIVE); COLOR,URINE AMBER; GLUCOSE, URINE NEGATIVE (NEGATIVE); KETONES,URINE 20 mg/dL (NEGATIVE); LEUKOCYTE ESTERASE,URINE MODERATE (NEGATIVE); NITRITE,URINE POSITIVE (NEGATIVE); PROTEIN,URINE 30 mg/dL (NEGATIVE); URINE SPECIFIC GRAVITY 1.021
[2019-04-09 11:13] LABS: ABSOLUTE LYMPHOCYTES (AUTO) 1.1 10^3/uL (0.5-4.7); ABSOLUTE MONOCYTES (AUTO) 0.5 10^3/uL (0.1-1.4); ABSOLUTE NEUT (AUTO) 3.5 10^3/uL (1.7-8.2); BASOPHILS % (AUTO) 0.4 % (0-2); EOSINOPHILS % (AUTO) 0.3 % (0-6); HEMATOCRIT 28.9 % (36.0-47.0); HEMOGLOBIN 9.9 g/dL (12.0-15.5); LYMPHOCYTES % (AUTO) 20.6 % (13-45); MEAN CORPUSCULAR HEMOGLOBIN 29.6 pg (27.0-33.4); MEAN CORPUSCULAR HGB CONC 34.4 g/dL (32.0-36.0); MEAN CORPUSCULAR VOLUME 86 fl (80-97); MONOCYTES % (AUTO) 10.6 % (3-13); PLATELET COUNT 208 10^3/uL (150-450); RED BLOOD COUNT 3.35 10^6/uL (3.72-5.28); RED CELL DISTRIBUTION WIDTH 14.8 % (11.5-14.0); SEGMENTED NEUTROPHILS % (AUTO) 68.1 % (42-78); TOTAL CELLS COUNTED % (AUTO) 100 %; WHITE BLOOD COUNT 5.1 10^3/uL (4.0-10.5)
--- NOTE | 2019-04-09 11:57 | ER Document Report ---
ED General - General Chief Complaint: Vaginal Pain Stated Complaint: DIZZINESS Time Seen by Provider: 04/09/19 10:02 Primary Care Provider: ALEXIS SOARES FNP-BC [NO LOCAL MD] - Follow up as needed Mode of Arrival: Ambulatory TRAVEL OUTSIDE OF THE [place] IN LAST 30 DAYS: No - HPI Notes: Patient is a 28-year-old female who presents complaining of vaginal discharge, urinary burning/urgency/frequency, lower pelvic/right lower quadrant pain, fevers at home, nausea, occasional dizziness over the past 4 days. Patient did start Macrobid for 1 day recently by her family doctor, but was told to stop it thereafter. Patient is able to eat and drink without difficulty. She is having normal bowel movements. No surgical history to her abdomen. Denies any headache, neck pain, URI, sore throat, chest pain, palpitations, syncope, cough, shortness of breath, wheeze, dyspnea, vomiting/diarrhea, loss of control of bowel or bladder, numbness/tingling, saddle anesthesia, muscle paralysis/weakness, or rash. - Related Data Allergies/Adverse Reactions: diphenhydramine [From Benadryl] Allergy (Verified 04/09/19 09:45) Penicillins Allergy (Verified 04/09/19 09:45) vancomycin Allergy (Verified 04/09/19 09:45) Past Medical History - General Information source: Patient - Social History Smoking Status: Never Smoker Chew tobacco use (# tins/day): No Frequency of alcohol use: None Drug Abuse: None Family History: Reviewed & Not Pertinent Patient has suicidal ideation: No Patient has homicidal ideation: No Pulmonary Medical History: Reports: Hx Bronchitis, Hx Pneumonia Neurological Medical History: Reports: Hx Seizures - febrile seizures Renal/ Medical History: Denies: Hx Peritoneal Dialysis - Immunizations Immunizations up to date: Yes Hx Diphtheria, Pertussis, Tetanus Vaccination: Yes Review of Systems - Review of Systems -: Yes All other systems reviewed and negative Physical Exam - Vital signs Vitals: Temp Pulse Resp BP Pulse Ox 99.3 F 107 H 16 102/64 99 04/09/19 09:55 04/09/19 09:55 04/09/19 09:55 04/09/19 09:55 04/09/19 09:55 - Notes Notes: PHYSICAL EXAMINATION: GENERAL: Well-appearing, well-nourished and in no acute distress. HEAD: Atraumatic, normocephalic. EYES: Pupils equal round and reactive to light, extraocular movements intact, conjunctiva are normal. ENT: Nares patent, oropharynx clear without exudates. Moist mucous membranes. No tonsillar hypertrophy or erythema. No sinus tenderness. NECK: Normal range of motion, supple without lymphadenopathy LUNGS: Breath sounds clear to auscultation bilaterally and equal. No wheezes rales or rhonchi. HEART: Regular rate and rhythm without murmurs ABDOMEN: Soft, nondistended abdomen. No guarding, no rebound. Normal bowel s ounds present. CVA tenderness negative bilaterally. + mild tenderness suprapubic. Female : No inguinal adenopathy. Labia mildly inflamed with small ulcerations noted. Vaginal mucosa pink with white discharge noted. Cervix parous, pink, and without discharge. Uterus is smooth. No adnexal tenderness. No CMT. Witnessed exam by female tech, Anderia. Musculoskeletal: FROM to passive/active. Strength 5+/5. Extremities: No cyanosis/clubbing/edema b/l. Peripheral pulses 2+. Capillary refill less than 3 seconds. NEUROLOGICAL: Cranial nerves grossly intact. Normal speech, normal gait. Normal sensory, motor exams PSYCH: Normal mood, normal affect. SKIN: Warm, Dry, normal turgor, no rashes or lesions noted. Course - Re-evaluation Re-evalutation: 04/09/19 13:[address] Bishop who is in agreement with dispo/plan: Patient is an afebrile, well-hydrated, 28-year-old female who presents with vaginal yeast infection, bacterial vaginosis, acute UTI. Vitals are acceptable without significant tachycardia, tachypnea, or hypoxia. PE is otherwise unremarkable. Patient is nontoxic-appearing and is able to tolerate p.o. without difficulty. Evaluation of patient's abdomen reveals that she is nontender throughout aside from mild discomfort at suprapubic. Transvaginal ultrasound unremarkable. See UA with UC pending. Labs are otherwise acceptable with negative as well. Patient was given 1 dose of Rocephin IV. She has rash with penicillins, no angioedema. Cross-reactivity reviewed. Patient in agreement. Low suspicion/risk for acute appendicitis, bowel obstruction, acute cholecystitis, acute cholangitis, perforated diverticulitis, incarcerated hernia, pancreatitis, perforated ulcer, peritonitis, sepsis, pelvic inflammatory disease, ectopic , tubo-ovarian abscess, ovarian torsion, or other systemic emergent condition at this time. Patient is aware that her condition can change from initial presentation and she needs to monitor symptoms closely and seek medical attention if any acute changes. Rx for keflex. Conservative measures otherwise for symptoms. Recheck with OBGYN in 2-3 days. Recheck with your PCM in 2-3 days. Return to the ED with any worsening/concerning symptoms otherwise as reviewed in discharge. Patient is in agreement. - Vital Signs Vital signs: Temp Pulse Resp BP Pulse Ox 99.3 F 107 H 16 102/64 99 04/09/19 09:55 04/09/19 09:55 04/09/19 09:55 04/09/19 09:55 04/09/19 09:55 - Laboratory Result Diagrams: 04/09/19 11:00 04/09/19 11:00 Laboratory results interpreted by me: 04/09/19 04/09/19 10:15 11:00 RBC 3.35 L Hgb 9.9 L Hct 28.9 L RDW 14.8 H Urine Protein 30 H Urine Ketones 20 H Urine Blood MODERATE H Urine Nitrite POSITIVE H Urine Urobilinogen 2.0 H Ur Leukocyte Esterase MODERATE H Procedures - Pelvic Exam Pelvic exam Cultures obtained: Yes Wet prep obtained: Yes Bimanual exam performed: Yes - neg Witnessed by: wendy May Discharge - Discharge Clinical Impression: Acute UTI (urinary tract infection), Vaginal yeast infection, BV (bacterial vaginosis) Condition: Stable Disposition: HOME, SELF-CARE Instructions: Cephalexin ([facility]), Urinary Tract Infection ([facility]), Vaginal Yeast Infection ([facility]), Vaginosis, Bacterial ([facility]), Metronidazole ([facility]) Additional Instructions: Maintain fluid intake Proper hygienic technique Keep the skin clean Tylenol/ibuprofen as needed F/u with your PCM/OBGYN in 2-3 days for a recheck Return to the ED with any development of REYES/fever, trouble with vision, eye redness, worsening pain, urethral discharge, urinary retention, blood in the urine, flank pain, abdominal pain, n/v, Chest Pain, shortness of breath, joint pains, trouble breathing, or any other worsening/concerning symptoms as needed otherwise. Prescriptions: Cephalexin Monohydrate [Keflex 500 mg Capsule] 500 mg PO TID #21 capsule Fluconazole [Diflucan] 150 mg PO ONCE PRN #1 tablet PRN Reason: Metronidazole [Flagyl] 500 mg PO BID #14 tablet Referrals: ALEXIS SOARES FNP-BC [NO LOCAL MD] - Follow up as needed [facility] [Provider Group] - 04/12/19
[2019-04-09 12:02] LABS: BACTERIA (WET MOUNT) 4+ BACTERIA SEEN; EPITHELIALS (WET MOUNT) 3+ EPITHELIALS SEEN; RBCS (WET MOUNT) 1+ RBCS SEEN; T.VAGINALIS (WET MOUNT) NO TRICHOMONAS SEEN; WBCS (WET MOUNT) 4+ WBCS SEEN; YEAST (WET MOUNT) YEAST SEEN
[2019-04-09 12:14] LABS: CHLAM PCR NOT DETECTED (NOT DETECT)
--- NOTE | 2019-04-09 12:48 | RADIOLOGY REPORT (SQ) ---
EXAM DESCRIPTION: U/S NON OB PEL TV W/DOPPLER COMPLETED DATE/TIME: 04/09/2019 12:34 pm REASON FOR STUDY: pelvic pain COMPARISON: None. TECHNIQUE: Dynamic and static grayscale images acquired of the pelvis via transvaginal approach and recorded on PACS. Additional selected color Doppler and spectral images recorded. LIMITATIONS: None. FINDINGS: UTERUS: Contour normal. No mass. ENDOMETRIAL STRIPE: IUD in position. No focal or generalized thickening. No masses. CERVIX: No nabothian cysts. RIGHT OVARY AND DOPPLER: Normal size. No worrisome masses. Normal arterial vascular flow without evid ence for torsion. LEFT OVARY AND DOPPLER: Normal size. No worrisome masses. Normal arterial vascular flow without evide nce for torsion. FREE FLUID: None noted. OTHER: No other significant finding. MEASUREMENTS: UTERUS: 7.7 x 3.9 x 3.9 cm ENDOMETRIAL STRIPE: 4 mm RIGHT OVARY: 3.4 x 2.4 x 2.9 cm LEFT OVARY: 3.5 x 2.3 x 2.7 cm IMPRESSION: IUD is present in the endometrium. No ultrasound abnormality of the pelvis to explain p ain. TECHNICAL DOCUMENTATION: JOB ID: [id number]- All Rights Reserved Rev Reading location - IP/workstation name: [email or web address]
[2019-04-09] MEDS ORDERED: CEFTRIAXONE 1 GM/D5W RTU 1 GM/50 ML RTUPB IV ONE (12:59)
[2019-04-09] MEDS ORDERED: FLUCONAZOLE 100 MG TABLET PO ONE (13:00)
[2019-04-09 13:03] LABS: ALBUMIN 3.7 g/dL (3.5-5.0); ALKALINE PHOSPHATASE 41 U/L (38-126); ANION GAP 10 (5-19); ASPARTATE AMINO TRANSFERASE 14 U/L (14-36); BILIRUBIN,DIRECT 0.1 mg/dL (0.0-0.4); BILIRUBIN,TOTAL 0.4 mg/dL (0.2-1.3); BLOOD UREA NITROGEN 12 mg/dL (7-20); CALCIUM 7.7 mg/dL (8.4-10.2); CARBON DIOXIDE 20 mmol/L (22-30); CHLORIDE 109 mmol/L (98-107); GLUCOSE 85 mg/dL (75-110); POTASSIUM 3.7 mmol/L (3.6-5.0); TOTAL PROTEIN 6.2 g/dL (6.3-8.2)
[2019-04-09 13:50] VITALS: BP 106/58
--- NOTE | 2019-04-10 10:32 | EKG REPORT ---
SEVERITY:- NORMAL ECG - SINUS RHYTHM : Confirmed by: Corie Burgess 10-Apr-2019 10:30:56
== END 2019-04-09 13:50 | disposition home or self-care (01) ==
LOC: ER 09:42
DX: N39.0 Urinary tract infection, site not specified (principal); B37.3 Candidiasis of vulva and vagina; N76.0 Acute vaginitis; B96.89 Other specified bacterial agents as the cause of diseases classified elsewhere; R10.2 Pelvic and perineal pain; R42 Dizziness and giddiness; Z88.0 Allergy status to penicillin; Z88.3 Allergy status to other anti-infective agents
CPT/HCPCS: 93005; 99284; 96361; 96375; 96365; 36415; 87210; 84703; 85025; 80053; 81001; 87491; 87591; 76830; 93976; 93010; J1885; J2405; J7030; J0696

== ENCOUNTER 2019-04-09 22:44 | Emergency (ER) | payer OTHER ==
[2019-04-10 07:26] LABS: APPEARANCE,URINE CLEAR; BILIRUBIN,URINE NEGATIVE (NEGATIVE); COLOR,URINE YELLOW; GLUCOSE, URINE NEGATIVE (NEGATIVE); KETONES,URINE TRACE mg/dL (NEGATIVE); LEUKOCYTE ESTERASE,URINE NEGATIVE (NEGATIVE); NITRITE,URINE NEGATIVE (NEGATIVE); PROTEIN,URINE NEGATIVE (NEGATIVE); URINE SPECIFIC GRAVITY 1.016; UROBILINOGEN,URINE NEGATIVE mg/dL (<2.0)
[2019-04-10] MEDS ORDERED: LIDOCAINE 2% JELLY 30 ML TUBE TOP ONE (08:31)
[2019-04-10 09:04] VITALS: BP 103/61
--- NOTE | 2019-04-11 10:40 | ER Document Report ---
Entered by MAITE POLLACK SCRIBE 04/10/19 0811 Acting as scribe for:GHAZALA ESPINOSA MD ED General - General Chief Complaint: Urinary Retention Stated Complaint: URINARY PROBLEMS Time Seen by Provider: 04/10/19 08:08 Primary Care Provider: MANNIE WARD DO [Primary Care Provider] - Follow up as needed Notes: Patient is a 28-year-old female presenting to the emergency department complaining of urinary retention. Patient states that she was here in the emergency department yesterday and was diagnosed by a physician's phlebotomist lab assistant with having bacterial vaginosis, yeast, UTI. Patient states that she did pee here in the emergency department when given a catheter. Patient states that it feels like burning, swelling when she pees, she also noticed reddening, and vaginal discharge. Patient denies experiencing any fever. Upon reentering the room discussing with the patient what was on her work-up yesterday, patient admits that she endorses the urinary retention, because she is aware that it will be painful to urinate. TRAVEL OUTSIDE OF THE [place] IN LAST 30 DAYS: No - Related Data Allergies/Adverse Reactions: diphenhydramine [From Benadryl] Allergy (Verified 04/09/19 23:11) Penicillins Allergy (Verified 04/09/19 23:11) vancomycin Allergy (Verified 04/09/19 23:11) Past Medical History - General Information source: Patient - Social History Smoking Status: Never Smoker Cigarette use (# per day): No Chew tobacco use (# tins/day): No Frequency of alcohol use: Rare Drug Abuse: None Family History: Reviewed & Not Pertinent Patient has suicidal ideation: No Patient has homicidal ideation: No Pulmonary Medical History: Reports: Hx Bronchitis, Hx Pneumonia Neurological Medical History: Reports: Hx Seizures - febrile seizures - Immunizations Immunizations up to date: Yes Hx Diphtheria, Pertussis, Tetanus Vaccination: Yes Review of Systems - Review of Systems Constitutional: No symptoms reported. denies: Fever EENT: No symptoms reported Cardiovascular: No symptoms reported Respiratory: No symptoms reported Gastrointestinal: No symptoms reported Genitourinary: See HPI, Burning, Discharge, Retention, Other - Swelling, erythema Female Genitourinary: No symptoms reported Musculoskeletal: No symptoms reported Skin: No symptoms reported Hematologic/Lymphatic: No symptoms reported Neurological/Psychological: No symptoms reported -: Yes All other systems reviewed and negative Physical Exam - Vital signs Vitals: Temp Pulse Resp BP Pulse Ox 98.9 F 114 H 20 111/67 98 04/09/19 23:13 04/09/19 23:13 04/09/19 23:13 04/09/19 23:13 04/09/19 23:13 - Notes Notes: Physical Exam: General: Alert, appears well. HEENT: Normocephalic. Atraumatic. PERRL. Extraocular movements intact. Oropharynx clear. Neck: Supple. Non-tender. Respiratory: No respiratory distress. Clear and equal breath sounds bilaterally. Cardiovascular: Regular rate and rhythm. Abdominal: Normal Inspection. Non-tender. No distension. Normal Bowel Sounds. Back: Non-tender. No deformity or step off. Extremities: Moves all four extremities. Upper extremities: Normal inspection. Normal ROM. Lower extremities: Normal inspection. No edema. Normal ROM. Neurological: Normal cognition. AAOx4. Normal speech. Psychological: Normal affect. Normal Mood. Skin: Warm. Dry. Normal color. Course - Re-evaluation Re-evalutation: 04/10/19 08:26 Patient was seen and thoroughly evaluated by some medical yesterday. Upon chart review labs within normal limits nonsignificant. He did have a urinary tract infection and was provided Rocephin and then outpatient Keflex. Patient has filled the prescription. Return today because she states that is very painful when she urinates to the excoriations in her labial folds. She was diagnosed with yeast and pectoral vaginosis and provided Diflucan as well as Flagyl. Her GC chlamydia test was negative. I discussed using antibiotic ointment to help buffer the excoriations in her vaginal folds. We will also provide short dose of Percocet for pain control. Her urinary retention appears to be related to pain when she urinates. Urinalysis today shows no signs of infection indicating Rocephin is helped clear the infection. Return precautions provided - Vital Signs Vital signs: Temp Pulse Resp BP Pulse Ox 98.2 F 82 12 103/61 100 04/10/19 08:48 04/10/19 08:48 04/10/19 08:48 04/10/19 08:48 04/10/19 08:48 - Laboratory Laboratory results interpreted by me: 04/10/19 06:55 Urine Ketones TRACE H Urine Blood SMALL H Discharge - Discharge Clinical Impression: Bacterial vaginosis, Vaginal yeast infection Urinary tract infection Qualifiers: Urinary tract infection type: site unspecified Hematuria presence: without hematuria Qualified Code(s): N39.0 - Urinary tract infection, site not specified Disposition: HOME, SELF-CARE Prescriptions: Oxycodone HCl/Acetaminophen [Percocet 5-325 mg Tablet] 1 tab PO Q4H PRN #5 tablet PRN Reason: Referrals: MANNIE WARD DO [Primary Care Provider] - Follow up as needed I personally performed the services described in the documentation, reviewed and edited the documentation which was dictated to the scribe in my presence, and it accurately records my words and actions.
== END 2019-04-10 09:04 | disposition home or self-care (01) ==
LOC: ER 22:44
DX: N76.0 Acute vaginitis (principal); B96.89 Other specified bacterial agents as the cause of diseases classified elsewhere; B37.3 Candidiasis of vulva and vagina; N39.0 Urinary tract infection, site not specified; R33.9 Retention of urine, unspecified; Z88.0 Allergy status to penicillin; Z88.3 Allergy status to other anti-infective agents
CPT/HCPCS: 51701; 81001; 99283

== ENCOUNTER 2020-04-04 22:52 | Emergency (ER) | payer OTHER ==
--- NOTE | 2020-04-05 02:32 | ER Document Report ---
Entered by MILLIE DILLON SCRIBE 04/05/20 0220 Acting as scribe for:LUIS QUINTANA DO ED General - General Chief Complaint: Chest Pain Stated Complaint: BLOOD PRESSURE ISSUES/HEADACHE/DIZZINESS Primary Care Provider: MANNIE WARD DO [Primary Care Provider] - 04/06/20 Mode of Arrival: Ambulatory Information source: Patient Notes: This 29 year old female patient presents to the ED today with complaints of feeling sick since yesterday morning. Patient states that she woke up feeling dizzy, lightheaded, and nauseous. No vomiting. She states that her symptoms p rogressively worsened throughout the day with generalized weakness, fatigue, and headache. She mentions that she checked her blood pressure and it was 140/120, so she decided to come to the ED for evaluation. Denies fever, cough, chest pain, diarrhea, or any urinary symptoms. She denies any sick contacts, [place] - Related Data Allergies/Adverse Reactions: diphenhydramine [From Benadryl] Allergy (Verified 04/04/20 23:18) Penicillins Allergy (Verified 04/04/20 23:18) vancomycin Allergy (Verified 04/04/20 23:18) Home Medications: Lexapro, Concerta Past Medical History - General Information source: Patient - Social History Smoking Status: Never Smoker Cigarette use (# per day): No Chew tobacco use (# tins/day): No Smoking Education Provided: No Frequency of alcohol use: None Drug Abuse: None Lives with: Family Family History: Reviewed & Not Pertinent Patient has suicidal ideation: No Patient has homicidal ideation: No Pulmonary Medical History: Reports: Hx Bronchitis, Hx Pneumonia Neurological Medical History: Reports: Hx Seizures - febrile seizures - Immunizations Immunizations up to date: Yes Hx Diphtheria, Pertussis, Tetanus Vaccination: Yes Review of Systems - Review of Systems Constitutional: See HPI, Weakness, Other - Fatigue. denies: Fever EENT: No symptoms reported Cardiovascular: See HPI, Dizziness, Lightheaded. denies: Chest pain Respiratory: See HPI. denies: Cough Gastrointestinal: Nausea. denies: Diarrhea, Vomiting Genitourinary: See HPI. denies: Burning, Dysuria, Frequency, Flank pain, Hematuria Female Genitourinary: No symptoms reported Musculoskeletal: No symptoms reported Skin: No symptoms reported Hematologic/Lymphatic: No symptoms reported Neurological/Psychological: See HPI, Headaches -: Yes All other systems reviewed and negative Physical Exam - Vital signs Vitals: Temp 98.2 F 04/04/20 22:53 Interpretation: Normal - General General appearance: Appears well, Alert In distress: None - HEENT Head: Normocephalic, Atraumatic Eyes: Normal Extraocular movements intact: Yes Pupils: PERRL - Respiratory Respiratory status: No respiratory distress Chest status: Nontender Breath sounds: Normal Chest palpation: Normal - Cardiovascular Rhythm: Regular Heart sounds: Normal auscultation Murmur: No Friction rub: No Gallop: None auscultated - Abdominal Inspection: Normal Distension: No distension Bowel sounds: Normal Tenderness: Nontender - Abdomen soft Organomegaly: No organomegaly - Back Back: Normal, Nontender - Extremities General upper extremity: Normal inspection General lower extremity: Normal inspection - Neurological Neuro grossly intact: Yes Orientation: AAOx4 [place] Coma Scale Eye Opening: Spontaneous [place] Coma Scale Verbal: Oriented [place] Coma Scale Motor: Obeys Commands [place] Coma Scale Total: 15 - Psychological Associated symptoms: Normal affect, Normal mood - Skin Skin Temperature: Warm Skin Moisture: Dry Skin Color: Normal Course - Re-evaluation Re-evalutation: 04/05/20 05:22 MDM 29 year old female arrives with feeling sick for a day. Nausea and feeling fatigued all at once. She is certainly nontoxic here and we discussed follow up and she expressed understanding. Also she understands self isolation. - Vital Signs Vital signs: Temp Pulse Resp BP Pulse Ox 97.6 F 91 16 111/69 98 04/05/20 05:15 04/05/20 05:15 04/05/20 05:15 04/05/20 05:15 04/05/20 05:15 - Laboratory Result Diagrams: 04/05/20 02:30 04/05/20 02:30 Laboratory results interpreted by me: 04/05/20 04/05/20 02:30 03:42 Lipase 524.0 H Urine Ascorbic Acid 40 H Discharge - Discharge Clinical Impression: Nausea, Dyspepsia Condition: Stable Disposition: HOME, SELF-CARE Instructions: Clear Liquid Diet ([facility]), Nausea or Vomiting, Nonspecific ([facility]) Additional Instructions: Clear liquids as described. Rest. Medicine as directed. Please return here for chest pain, shortness of breath or other concerns. Your nausea medicine has been transmitted to the [facility]. You were tested for Covid 19 here and should self isolate and not work until you are better and the result may take 1-2 weeks to return. Prescriptions: Ondansetron [Zofran Odt 4 mg Tablet] 1 - 2 tab PO Q4H PRN #15 tab.rapdis PRN Reason: For Nausea/Vomiting Referrals: MANNIE WARD DO [Primary Care Provider] - 04/06/20 I personally performed the services described in the documentation, reviewed and edited the documentation which was dictated to the scribe in my presence, and it accurately records my words and actions.
[2020-04-05 02:49] LABS: ABSOLUTE BASOPHILS # (AUTO) 0.1 10^3/uL (0.0-0.2); ABSOLUTE EOSINOPHILS # (AUTO) 0.2 10^3/uL (0.0-0.6); ABSOLUTE LYMPHOCYTES (AUTO) 2.8 10^3/uL (0.5-4.7); ABSOLUTE MONOCYTES (AUTO) 0.5 10^3/uL (0.1-1.4); ABSOLUTE NEUT (AUTO) 4.1 10^3/uL (1.7-8.2); BASOPHILS % (AUTO) 0.7 % (0-2); EOSINOPHILS % (AUTO) 2.2 % (0-6); HEMATOCRIT 37.3 % (36.0-47.0); HEMOGLOBIN 12.4 g/dL (12.0-15.5); LYMPHOCYTES % (AUTO) 37.2 % (13-45); MEAN CORPUSCULAR HEMOGLOBIN 29.8 pg (27.0-33.4); MEAN CORPUSCULAR HGB CONC 33.2 g/dL (32.0-36.0); MEAN CORPUSCULAR VOLUME 90 fl (80-97); MONOCYTES % (AUTO) 6.3 % (3-13); PLATELET COUNT 238 10^3/uL (150-450); RED BLOOD COUNT 4.15 10^6/uL (3.72-5.28); SEGMENTED NEUTROPHILS % (AUTO) 53.6 % (42-78); TOTAL CELLS COUNTED % (AUTO) 100 %; WHITE BLOOD COUNT 7.6 10^3/uL (4.0-10.5)
[2020-04-05 03:03] LABS: ALBUMIN 4.7 g/dL (3.5-5.0); ALKALINE PHOSPHATASE 55 U/L (38-126); ANION GAP 7 (5-19); ASPARTATE AMINO TRANSFERASE 19 U/L (14-36); BILIRUBIN,TOTAL 0.3 mg/dL (0.2-1.3); BLOOD UREA NITROGEN 16 mg/dL (7-20); CALCIUM 9.4 mg/dL (8.4-10.2); CARBON DIOXIDE 28 mmol/L (22-30); CHLORIDE 103 mmol/L (98-107); GLUCOSE 100 mg/dL (75-110); POTASSIUM 4.2 mmol/L (3.6-5.0); TOTAL PROTEIN 7.6 g/dL (6.3-8.2)
--- NOTE | 2020-04-05 03:55 | RADIOLOGY REPORT (SQ) ---
EXAM DESCRIPTION: XR CHEST 1 VIEW COMPLETED DATE/TME: 04/05/2020 02:24 CLINICAL HISTORY: 29 years Female, weak COMPARISON:Mar 17 2019 NUMBER OF VIEWS/TECHNIQUE: 1/AP FINDINGS: Adequate lung volume, clear parenchyma, normal cardiac silhouette, and intact bony thorax. IMPRESSION: No acute cardiopulmonary findings.
[2020-04-05 04:27] LABS: APPEARANCE,URINE SLIGHTLY-CLOUDY; BILIRUBIN,URINE NEGATIVE (NEGATIVE); COLOR,URINE YELLOW; GLUCOSE, URINE NEGATIVE (NEGATIVE); KETONES,URINE NEGATIVE (NEGATIVE); LEUKOCYTE ESTERASE,URINE NEGATIVE (NEGATIVE); NITRITE,URINE NEGATIVE (NEGATIVE); PROTEIN,URINE NEGATIVE (NEGATIVE); URINE SPECIFIC GRAVITY 1.029; UROBILINOGEN,URINE NEGATIVE mg/dL (<2.0)
[2020-04-05 05:18] VITALS: BP 111/69
== END 2020-04-05 05:15 | disposition home or self-care (01) ==
LOC: ER 22:52
DX: R11.0 Nausea (principal); R10.13 Epigastric pain; R07.9 Chest pain, unspecified; R51 Headache; R42 Dizziness and giddiness; Z20.828 Contact with and (suspected) exposure to other viral communicable diseases
CPT/HCPCS: 99284; 36415; 83690; 83735; 85025; 87635; 81025; 80053; 81001; 71045; C9803